=== PATIENT | female | born 1980 | race Caucasian/White ===

== ENCOUNTER 2017-05-02 11:04 | Observation (INO) | payer OTHER ==
[2017-05-02] MEDS ORDERED: SODIUM CHLORIDE 0.9% 1,000 ML IV STA (11:28)
[2017-05-02 12:02] LABS: Basophils # (A) 0.1 k/uL (0-0.2); Basophils % (A) 0 %; Eosinophils # (A) 0.1 k/uL (0-0.7); Eosinophils % (A) 1 %; HCT 38.4 % (34.0-46.0); HDW 2.39; HGB 13.2 gm/dL (11.4-16.0); Luc % (Auto) 1; Lymphocytes % (A) 15 %; MCH 34.5 pg (25.0-35.0); MCHC 34.4 g/dL (31.0-37.0); MCV 100.4 fL (80.0-100.0); Mean Platelet Volume 6.7; Monocytes # (A) 0.5 k/uL (0-1.0); Monocytes % (A) 3 %; Neutrophils # (A) 10.9 k/uL (1.3-7.7); Neutrophils % (A) 79 %; RBC 3.83 m/uL (3.80-5.40); WBC 13.7 k/uL (3.8-10.6); WBC (Perox) 13.84
[2017-05-02 12:14] LABS: Partial Thromboplastin Time 24.8 sec (22.0-30.0); Prothrombin Time 10.6 sec (9.0-12.0)
--- NOTE | 2017-05-02 12:15 | XR ---
EXAMINATION TYPE: XR chest 2V DATE OF EXAM: 05/02/2017 COMPARISON: NONE TECHNIQUE: PA and lateral views submitted. HISTORY: Chest pain FINDINGS: The lungs are clear and there is no pneumothorax, pleural effusion, or focal pneumonia. Biapical pl eural thickening with hyperinflation. Correlate for COPD. IMPRESSION: 1. No acute process. Mild hyperinflation lungs with biapical pleural thickening.
[2017-05-02] MEDS ORDERED: ACETAMINOPHEN TAB 500 MG TAB PO STA (12:16)
[2017-05-02 12:19] LABS: ALT 36 U/L (9-52); AST 22 U/L (14-36); Alkaline Phosphatase 68 U/L (38-126); Anion Gap 8 mmol/L; Blood Urea Nitrogen 7 mg/dL (7-17); Calcium 10.9 mg/dL (8.4-10.2); Carbon Dioxide 26 mmol/L (22-30); Chloride 106 mmol/L (98-107); Glucose 92 mg/dL (74-99); Magnesium 2.1 mg/dL (1.6-2.3); Non-African American GFR(MDRD) >60 (>60 ml/min/1.73 sqM); Potassium 4.4 mmol/L (3.5-5.1); Sodium 140 mmol/L (137-145); Total Bilirubin 0.3 mg/dL (0.2-1.3); Total Protein 7.3 g/dL (6.3-8.2)
[2017-05-02 12:22] LABS: Appearance,Urine Clear (Clear); Bilirubin,Urine Negative (Negative); Glucose,Urine (UA) Negative (Negative); Ketones,Urine Negative (Negative); Leukocyte Esterase,Urine Negative (Negative); Nitrite,Urine Negative (Negative); PH, Urine 7.5 (5.0-8.0); Protein,Urine Negative (Negative); Specific Gravity,Urine 1.006 (1.001-1.035); UA Billing (MACRO vs. MICRO) CHEM; Urobilinogen,Urine <2.0 mg/dL (<2.0)
[2017-05-02] MEDS ORDERED: NALOXONE 0.4 MG/ML 1 ML VIAL IV PRN (13:24)
--- NOTE | 2017-05-02 13:30 | ED ---
General Adult HPI - General Chief complaint: Chest Pain Stated complaint: chest pain, left arm and leg numbness Time Seen by Provider: 05/02/17 11:25 Source: patient Mode of arrival: wheelchair Limitations: no limitations - History of Present Illness Initial comments: Patient complains of bright red blood per rectum. She also complains of chest pain. Blood in her stool has been present for several days. She has had a lot of diarrhea as well. She is not having belly pain. She has no back pain. Patient is also having some lightheadedness and chest pain today. The symptoms are getting progressively worse. The pain is nonfocal and nonradiating throughout her chest. She denies any syncope. She has no neck pain or stiffness. She has no change in vision or hearing. She is tolerating oral intake. She was not doing anything when the symptoms began. She has taken no medication for any persistent symptoms. - Related Data Home Medications Medication Instructions Recorded Confirmed Atenolol [Tenormin] 50 mg PO DAILY 04/10/16 05/02/17 Ranitidine HCl [Zantac] 300 mg PO HS 04/10/16 05/02/17 cloNIDine HCL [Catapres] 0.2 mg PO TID 04/10/16 05/02/17 Calcium Carbonate/Vitamin D3 1 tab PO DAILY 05/02/17 05/02/17 [Calcium 600-Vit D3 400 Caplet] Cholecalciferol (Vitamin D3) 2,000 unit PO DAILY 05/02/17 05/02/17 [Vitamin D3] DULoxetine HCL [Cymbalta] 60 mg PO DAILY 05/02/17 05/02/17 NIFEdipine XL [Procardia Xl] 60 mg PO DAILY 05/02/17 05/02/17 traZODone HCL 100 mg PO HS 05/02/17 05/02/17 Allergies Allergy/AdvReac Type Severity Reaction Status Date / Time alendronate sodium Allergy Swelling Verified 05/02/17 11:40 [From Fosamax] codeine Allergy Unknown Verified 05/02/17 11:40 morphine Allergy Rash/Hives Verified 05/02/17 11:40 Review of Systems ROS Statement: Those systems with pertinent positive or pertinent negative responses have been documented in the HPI. ROS Other: All systems not noted in ROS Statement are negative. Past Medical History Past Medical History: Hypertension, Rheumatoid Arthritis (RA) Additional Past Medical History / Comment(s): ovarian/ cervical cancer gastric ulcers raynauds History of Any Multi-Drug Resistant Organisms: None Reported Past Surgical History: Bladder Surgery, Hysterectomy Additional Past Surgical History / Comment(s): ovarian/ cervical cancer removal Past Psychological History: Anxiety Smoking Status: Current every day smoker Past Alcohol Use History: None Reported Past Drug Use History: Marijuana General Exam Limitations: no limitations General appearance: alert, in no apparent distress Head exam: Present: atraumatic, normocephalic, normal inspection Eye exam: Present: normal appearance, PERRL, EOMI. Absent: scleral icterus, conjunctival injection, periorbital swelling ENT exam: Present: normal exam, mucous membranes moist Neck exam: Present: normal inspection. Absent: tenderness, meningismus, lymphadenopathy Respiratory exam: Present: normal lung sounds bilaterally. Absent: respiratory distress, wheezes, rales, rhonchi, stridor Cardiovascular Exam: Present: regular rate, normal rhythm, normal heart sounds. Absent: systolic murmur, diastolic murmur, rubs, gallop, clicks GI/Abdominal exam: Present: soft, normal bowel sounds. Absent: distended, tenderness, guarding, rebound, rigid Extremities exam: Present: normal inspection, full ROM, normal capillary refill. Absent: tenderness, pedal edema, joint swelling, calf tenderness Back exam: Present: normal inspection Neurological exam: Present: alert, oriented X3, CN II-XII intact Psychiatric exam: Present: normal affect, normal mood Skin exam: Present: warm, dry, intact, normal color. Absent: rash Course Vital Signs 05/02/17 11:16 Temperature 97.8 F Pulse Rate 87 Respiratory 18 Rate Blood Pressure 143/93 O2 Sat by Pulse 99 Oximetry EKG Findings - EKG Comments: EKG Findings:: Twelve-lead EKG is obtained, interpreted by me as showing ventricular rate 82 bpm, normal MO interval and QRS complex is, no ST elevation or depression, interpreted by me as normal sinus rhythm. Medical Decision Making - Medical Decision Making Patient complains of chest pain, lightheadedness, with evidence of lower GI bleed. I have placed a consultation to GI. Given that she has active sarita blood per rectum, she will require admission to the hospital. - Lab Data Result diagrams: 05/02/17 11:45 05/02/17 11:45 Lab Results 05/02/17 05/02/17 05/02/17 Range/Units 11:45 11:45 11:45 WBC 13.7 H (3.8-10.6) k/uL RBC 3.83 (3.80-5.40) m/uL Hgb 13.2 (11.4-16.0) gm/dL Hct 38.4 (34.0-46.0) % MCV 100.4 H (80.0-100.0) fL MCH 34.5 (25.0-35.0) pg MCHC 34.4 (31.0-37.0) g/dL RDW 13.0 (11.5-15.5) % Plt Count 408 (150-450) k/uL Neutrophils % 79 % Lymphocytes % 15 % Monocytes % 3 % Eosinophils % 1 % Basophils % 0 % Neutrophils # 10.9 H (1.3-7.7) k/uL Lymphocytes # 2.0 (1.0-4.8) k/uL Monocytes # 0.5 (0-1.0) k/uL Eosinophils # 0.1 (0-0.7) k/uL Basophils # 0.1 (0-0.2) k/uL PT 10.6 (9.0-12.0) sec INR 1.0 (<1.2) APTT 24.8 (22.0-30.0) sec Sodium 140 (137-145) mmol/L Potassium 4.4 (3.5-5.1) mmol/L Chloride 106 (98-107) mmol/L Carbon Dioxide 26 (22-30) mmol/L Anion Gap 8 mmol/L BUN 7 (7-17) mg/dL Creatinine 0.62 (0.52-1.04) mg/dL Est GFR (MDRD) Af Amer >60 (>60 ml/min/1.73 sqM) Est GFR (MDRD) Non-Af >60 (>60 ml/min/1.73 sqM) Glucose 92 (74-99) mg/dL Calcium 10.9 H (8.4-10.2) mg/dL Magnesium 2.1 (1.6-2.3) mg/dL Total Bilirubin 0.3 (0.2-1.3) mg/dL AST 22 (14-36) U/L ALT 36 (9-52) U/L Alkaline Phosphatase 68 (38-126) U/L Troponin I (0.000-0.034) ng/mL Total Protein 7.3 (6.3-8.2) g/dL Albumin 4.6 (3.5-5.0) g/dL Lipase 210 (23-300) U/L Urine Color Urine Appearance (Clear) Urine pH (5.0-8.0) Ur Specific [place] (1.001-1.035) Urine Protein (Negative) Urine Glucose (UA) (Negative) Urine Ketones (Negative) Urine Blood (Negative) Urine Nitrite (Negative) Urine Bilirubin (Negative) Urine Urobilinogen (<2.0) mg/dL Ur Leukocyte Esterase (Negative) Urine HCG, Qual (Not Detectd) 05/02/17 05/02/17 05/02/17 Range/Units 11:45 11:50 11:50 WBC (3.8-10.6) k/uL RBC (3.80-5.40) m/uL Hgb (11.4-16.0) gm/dL Hct (34.0-46.0) % MCV (80.0-100.0) fL MCH (25.0-35.0) pg MCHC (31.0-37.0) g/dL RDW (11.5-15.5) % Plt Count (150-450) k/uL Neutrophils % % Lymphocytes % % Monocytes % % Eosinophils % % Basophils % % Neutrophils # (1.3-7.7) k/uL Lymphocytes # (1.0-4.8) k/uL Monocytes # (0-1.0) k/uL Eosinophils # (0-0.7) k/uL Basophils # (0-0.2) k/uL PT (9.0-12.0) sec INR (<1.2) APTT (22.0-30.0) sec Sodium (137-145) mmol/L Potassium (3.5-5.1) mmol/L Chloride (98-107) mmol/L Carbon Dioxide (22-30) mmol/L Anion Gap mmol/L BUN (7-17) mg/dL Creatinine (0.52-1.04) mg/dL Est GFR (MDRD) Af Amer (>60 ml/min/1.73 sqM) Est GFR (MDRD) Non-Af (>60 ml/min/1.73 sqM) Glucose (74-99) mg/dL Calcium (8.4-10.2) mg/dL Magnesium (1.6-2.3) mg/dL Total Bilirubin (0.2-1.3) mg/dL AST (14-36) U/L ALT (9-52) U/L Alkaline Phosphatase (38-126) U/L Troponin I <0.012 (0.000-0.034) ng/mL Total Protein (6.3-8.2) g/dL Albumin (3.5-5.0) g/dL Lipase (23-300) U/L Urine Color Light Yellow Urine Appearance Clear (Clear) Urine pH 7.5 (5.0-8.0) Ur Specific [place] 1.006 (1.001-1.035) Urine Protein Negative (Negative) Urine Glucose (UA) Negative (Negative) Urine Ketones Negative (Negative) Urine Blood Negative (Negative) Urine Nitrite Negative (Negative) Urine Bilirubin Negative (Negative) Urine Urobilinogen <2.0 (<2.0) mg/dL Ur Leukocyte Esterase Negative (Negative) Urine HCG, Qual Not Detected (Not Detectd) Disposition Clinical Impression: GI bleed Disposition: ADMITTED IP TO THIS [facility] Referrals: Antonia Goodrich DO [Primary Care Provider] - 1-2 days Time of Disposition: 13:30
[2017-05-02] MEDS: SODIUM CHLORIDE 0.9% 1,000 ML IV SCH (13:58)
[2017-05-02] MEDS: cloNIDine HCL 0.2 MG TAB PO SCH ×2 (16:54→21:12)
[2017-05-02] MEDS: ACETAMINOPHEN TAB 500 MG TAB PO PRN (19:03)
[2017-05-02] MEDS ORDERED: FAMOTIDINE 20 MG TAB PO SCH (21:00)
[2017-05-02] MEDS: traZODone HCL 100 MG TAB PO SCH (21:12)
[2017-05-03] MEDS: ACETAMINOPHEN TAB 500 MG TAB PO PRN ×3 (06:17→20:57)
[2017-05-03 07:35] LABS: Basophils % (A) 1 %; CHCM 34.3; Eosinophils # (A) 0.2 k/uL (0-0.7); Eosinophils % (A) 2 %; HCT 38.3 % (34.0-46.0); HDW 2.37; HGB 12.5 gm/dL (11.4-16.0); Luc # (Auto) 0.12; Luc % (Auto) 1; Lymphocytes # (A) 1.9 k/uL (1.0-4.8); Lymphocytes % (A) 19 %; MCH 33.3 pg (25.0-35.0); MCHC 32.5 g/dL (31.0-37.0); MCV 102.5 fL (80.0-100.0); Macrocytosis Slight; Mean Platelet Volume 7.3; Monocytes # (A) 0.4 k/uL (0-1.0); Monocytes % (A) 4 %; Neutrophils # (A) 7.1 k/uL (1.3-7.7); Neutrophils % (A) 73 %; RBC 3.74 m/uL (3.80-5.40); RDW 13.8 % (11.5-15.5); WBC 9.6 k/uL (3.8-10.6); WBC (Perox) 9.74
[2017-05-03] MEDS: cloNIDine HCL 0.2 MG TAB PO SCH ×3 (08:27→20:57)
[2017-05-03] MEDS: DULoxetine HCL 60 MG CAPSULE.DR PO SCH (08:27)
[2017-05-03] MEDS: ATENOLOL 50 MG TAB PO SCH (08:27)
--- NOTE | 2017-05-03 09:30 | P.CONS ---
History of Present Illness - Reason for Consult Consult date: 05/03/17 rectal bleeding Requesting physician: Jovanna Ludwig - History of Present Illness 36-year-old female with a history of peptic ulcer disease GERD, anxiety, nicotine cigarette dependency marijuana and opioid drug abuse admitted with reports of chest/abdominal pain and intermittent bloody diarrhea for 3 months. Patient states she try to wean herself off of opioid/[place] 3 months ago. Since then she has sought treatment at a rehabilitation center about 6 weeks ago in [facility] but is experiencing lower abdominal discomfort with intermittent bloody diarrhea 2-3 times a day for the last 3 months. Rehabilitation Center discharged until rectal bleeding can be evaluated. No recent antibiotics. No history of colitis IBS or GI bleeding. Last colonoscopy to her memory was 5 years ago with a polyp removed. EGD more than 3 years ago. Mother has a history of Crohn's disease. Denies fever or chills or weight loss. Intermittent emesis sometimes peaked tinge sometimes bilious. Upon evaluation in the ER rectal exam revealed sarita red blood. Nursing reports no episodes of hematochezia melena since admission. No aspirin or NSAIDs antiplatelet medications. Admission hemoglobin 13.2 presently 12.5. MCV 100-102. Platelet 408. INR 1.0. BUN 7. Creatinine 0.6. White count 13.7 presently 9.6. HCG not detected. Lipase 210. LFTs within normal limits. Review of Systems Constitutional: Denies fever, chills, sweats, weight gain, or loss. HEENT: Negative for migraines, blurred vision or loss, chronic hearing loss as a child, earaches, drainage, tinnitus, oral mucosal lesions, dysphagia, or odynophagia. CARDIAC: Hypertension. Negative for chest pain, arrhythmias, or palpitation. RESPIRATORY: Cigarette nicotine dependency. Marijuana. Negative for shortness of breath, hemoptysis, cough, or sputum production. GI: See HPI for pertinent findings. : Negative for hematuria, urgency, frequency, polyuria, or dysuria. GYNc: Cervical cancer. Denies possibility of . Negative vaginal discharge. MUSCULOSKELETAL: Negative for muscle aches, swelling, arthritis, and arthralgias. NEUROLOGIC: Negative for stroke or TIA. ENDOCRINE: Negative for thyroid problems. SKIN: Negative for rash or itching. PSYCHIATRIC: Anxiety. All systems: negative (See HPI) Past Medical History Past Medical History: GERD/Reflux, Hypertension, Rheumatoid Arthritis (RA) Additional Past Medical History / Comment(s): cervical cancer. gastric ulcers, raynauds,ruptured ear drum (lt) as child has some hearing loss. History of Any Multi-Drug Resistant Organisms: None Reported Past Surgical History: Bladder Surgery, Hysterectomy Additional Past Surgical History / Comment(s): ovarian/ cervical cancer removal , egd, colonoscopy Past Anesthesia/Blood Transfusion Reactions: No Reported Reaction Additional Past Anesthesia/Blood Transfusion Reaction / Comm: clausterphobic Smoking Status: Current every day smoker - Past Family History Father Additional Family Medical History / Comment(s): ulcers Mother Additional Family Medical History / Comment(s): ibs Medications and Allergies Home Medications Medication Instructions Recorded Confirmed Type Atenolol [Tenormin] 50 mg PO DAILY 04/10/16 05/02/17 History Ranitidine HCl [Zantac] 300 mg PO HS 04/10/16 05/02/17 History cloNIDine HCL [Catapres] 0.2 mg PO TID 04/10/16 05/02/17 History Calcium Carbonate/Vitamin D3 1 tab PO DAILY 05/02/17 05/02/17 History [Calcium 600-Vit D3 400 Caplet] Cholecalciferol (Vitamin D3) 2,000 unit PO DAILY 05/02/17 05/02/17 History [Vitamin D3] DULoxetine HCL [Cymbalta] 60 mg PO DAILY 05/02/17 05/02/17 History Gabapentin [Neurontin] 200 mg PO TID 05/02/17 05/02/17 History NIFEdipine XL [Procardia Xl] 60 mg PO DAILY 05/02/17 05/02/17 History traZODone HCL 100 mg PO HS 05/02/17 05/02/17 History Allergies Allergy/AdvReac Type Severity Reaction Status Date / Time alendronate sodium Allergy Swelling Verified 05/02/17 11:40 [From Fosamax] codeine Allergy Unknown Verified 05/02/17 11:40 morphine Allergy Rash/Hives Verified 05/02/17 11:40 Physical Exam Vitals: Vital Signs Temp Pulse Pulse Resp BP BP Pulse Ox 05/03/17 08:00 97.9 F 76 16 115/69 98 05/03/17 04:00 16 05/03/17 00:00 16 05/02/17 23:55 98.0 F 78 16 99/61 99 05/02/17 20:00 16 05/02/17 15:51 98.3 F 70 18 112/65 98 05/02/17 14:18 98.7 F 74 18 123/70 100 05/02/17 14:03 98.6 F 79 16 120/77 05/02/17 11:16 97.8 F 87 18 143/93 99 Intake and Output 05/02/17 05/03/17 05/03/17 22:59 06:59 14:59 Intake Total 360 Balance 360 Intake: Oral 360 Other: Voiding Method Toilet # Voids 1 1 Weight 54.3 kg 54.3 kg Patient Weight 05/04/17 06:59 Weight 54.3 kg General appearance: The patient is alert, oriented, in no acute distress. HET: Head is normocephalic and atraumatic. Pupils are equal and reactive. Oropharynx is clear without lesions. Neck: Supple without lymphadenopathy. Trachea midline. Heart: S1 S2. Regular rate and rhythm. Lungs: No crackles or wheezes are heard. Abdomen: Soft, nontender, nondistended with bowel sounds. No peritoneal signs. No palpable organomegaly or masses. Extremities: Normal skin color and turgor. No cyanosis, rash, ulceration, clubbing, or edema. Radial and pedal pulses are 2/4 bilaterally. Neurological: No focal deficits. Strength and sensation are grossly intact. Rectal: Brown stool and finger. No possible masses. No blood. No fissures. Results CBC & Chem 7: 05/03/17 07:06 05/02/17 11:45 Labs: Abnormal Lab Results - Last 24 Hours (Table) 05/02/17 05/02/17 05/03/17 Range/Units 11:45 11:45 07:06 WBC 13.7 H (3.8-10.6) k/uL RBC 3.74 L (3.80-5.40) m/uL MCV 100.4 H 102.5 H (80.0-100.0) fL Neutrophils # 10.9 H (1.3-7.7) k/uL Calcium 10.9 H (8.4-10.2) mg/dL Assessment and Plan (1) Rectal bleeding Narrative/Plan: Intermittent bilious pink tinged emesis, history of gastric ulcers, with rectal bleeding 2-3 times daily for the last 3 months possible colitis possible perianal pathology. History of familial inflammatory bowel disease. Status: Acute (2) History of gastroesophageal reflux (GERD) Status: Acute Plan: 1. Stool studies. Sed rate/CRP. 2. We'll proceed with EGD colonoscopy tomorrow for evaluation of pink tinged emesis and rectal bleeding. Supportive measures. Liquid diet. The stem dryer maintainer has discussed the risks, benefits and alternative therapies for the above-mentioned procedure and for both sedation/analgesia as well as necessary blood product administration, if indicated, as they pertain to this patient. The patient has indicated understanding and acceptance of the risks and procedures discussed. Thank you for this kind referral and the opportunity to participate in the care of your patient. This consultation was discussed with Dr. Vaca. The impression and plan of care have been directed as dictated.
[2017-05-03] MEDS: PANTOPRAZOLE 40 MG/10 ML VIAL IVP SCH ×2 (13:03→21:02)
[2017-05-03 13:37] VITALS: BMI 21.2
--- NOTE | 2017-05-03 13:57 | P.HPIM ---
History of Present Illness H&P Date: 05/03/17 Chief Complaint: Diarrhea with rectal bleeding This is a 36-year-old female with a known past medical history of peptic ulcer disease, hypertension, rheumatoid arthritis, Raynaud syndrome and nicotine dependence. Patient also has a known history of opioid drug abuse and had recently been at a rehabilitation center in [facility]. Patient reports that she has been having diarrhea about 2-3 times a day for the last 3 months. She is also had some vomiting. She is noted to have blood in her stools as well as intermittent episodes of emesis that is pink tinged. Patient reports therefore the rehabilitation center told her she needed to come to the hospital for evaluation before she could return to the rehabilitation center. Patient's last EGD and colonoscopy were about 5 years ago. At that time she was diagnosed with peptic ulcer disease as well as had polyps removed. Does have a mother with a history of Crohn's disease. Patient does report a burning sensation in her stomach especially in the lower stomach. Patient denies any fevers chills or sweats. Denies any burning with urination. GI service has been consulted. And they're planning to proceed with EGD and colonoscopy tomorrow. White count on admission was 13.7 down to 9.6 and hemoglobin 13.2 did down to 12.5. C. diff is negative. LFTs are normal. lipase normal. GI service did order further stool studies. Chest x-ray shows no acute changes. EKG normal sinus rhythm Review of Systems Please refer to HPI otherwise unremarkable Past Medical History Past Medical History: GERD/Reflux, Hypertension, Rheumatoid Arthritis (RA) Additional Past Medical History / Comment(s): cervical cancer. gastric ulcers, raynauds,ruptured ear drum (lt) as child has some hearing loss. History of Any Multi-Drug Resistant Organisms: None Reported Past Surgical History: Bladder Surgery, Hysterectomy Additional Past Surgical History / Comment(s): ovarian/ cervical cancer removal , egd, colonoscopy Past Anesthesia/Blood Transfusion Reactions: No Reported Reaction Additional Past Anesthesia/Blood Transfusion Reaction / Comment(s): clausterphobic Smoking Status: Current every day smoker - Past Family History Father Additional Family Medical History / Comment(s): ulcers Mother Additional Family Medical History / Comment(s): ibs Medications and Allergies Home Medications Medication Instructions Recorded Confirmed Type Atenolol [Tenormin] 50 mg PO DAILY 08/16/16 09/07/17 History Ranitidine HCl [Zantac] 300 mg PO HS 04/10/16 05/02/17 History cloNIDine HCL [Catapres] 0.2 mg PO TID 04/10/16 05/02/17 History Calcium Carbonate/Vitamin D3 1 tab PO DAILY 05/02/17 05/02/17 History [Calcium 600-Vit D3 400 Caplet] Cholecalciferol (Vitamin D3) 2,000 unit PO DAILY 05/02/17 05/02/17 History [Vitamin D3] DULoxetine HCL [Cymbalta] 60 mg PO DAILY 05/02/17 05/02/17 History Gabapentin [Neurontin] 200 mg PO TID 05/02/17 05/02/17 History NIFEdipine XL [Procardia Xl] 60 mg PO DAILY 05/02/17 05/02/17 History traZODone HCL 100 mg PO HS 05/02/17 05/02/17 History Allergies Allergy/AdvReac Type Severity Reaction Status Date / Time alendronate sodium Allergy Swelling Verified 05/02/17 11:40 [From Fosamax] codeine Allergy Unknown Verified 05/02/17 11:40 morphine Allergy Rash/Hives Verified 05/02/17 11:40 Physical Exam Vitals: Vital Signs Temp Pulse Pulse Resp BP BP Pulse Ox 05/03/17 08:00 97.9 F 76 16 115/69 98 05/03/17 04:00 16 05/03/17 00:00 16 05/02/17 23:55 98.0 F 78 16 99/61 99 05/02/17 20:00 16 05/02/17 15:51 98.3 F 70 18 112/65 98 05/02/17 14:18 98.7 F 74 18 123/70 100 05/02/17 14:03 98.6 F 79 16 120/77 Intake and Output 05/02/17 05/03/17 05/03/17 22:59 06:59 14:59 Intake Total 360 Balance 360 Intake: Oral 360 Other: Voiding Method Toilet # Voids 1 1 Weight 54.3 kg 54.3 kg Patient Weight 05/04/17 06:59 Weight 54.3 kg Head normocephalic Neck supple Lungs clear to auscultation bilaterally no wheezing or crackles Heart regular rate and rhythm S1-S2, no rub or gallop Abdomen is soft lower abdominal tenderness with palpation nondistended positive bowel sounds no hepatosplenomegaly Extremities no edema Neuro alert and orientated to 3 Results CBC & Chem 7: 05/03/17 07:06 05/02/17 11:45 Labs: Abnormal Lab Results - Last 24 Hours (Table) 05/03/17 Range/Units 07:06 RBC 3.74 L (3.80-5.40) m/uL MCV 102.5 H (80.0-100.0) fL Assessment and Plan Plan: 1. Rectal bleeding with diarrhea and pink tinged emesis. Patient has history of peptic ulcer disease. GI service consult appreciated. They're planning to proceed with EGD and colonoscopy tomorrow. Stool studies have been ordered per GI service. Stool for C. diff is negative. Continue with IV Protonix 2. Essential hypertension: Blood pressure medications have been resumed 3. Nicotine dependence: Add nicotine patch. Discussed smoking cessation. 4. History of Raynaud's syndrome 5. History of peptic ulcer disease 6. Opiate abuse had recently been at rehabilitation Center GI prophylaxis Protonix and DVT prophylaxis SCDs Time with Patient: Greater than 30 (Greater than 50% of the total time spent in counseling and coordination of care.I performed an examination of the patient and discussed their management with the physician Radiotelegraph Operator Servicer. I have reviewed the Physician Radiotelegraph Operator Servicer's notes and agree with the documented findings and plan of care)
[2017-05-03] MEDS ORDERED: PEG 3350-NA SULF,BICARB,CL/KCL 4,000 ML BOTTLE PO ONE (15:00)
[2017-05-03] MEDS: GABAPENTIN 100 MG CAP PO SCH ×2 (15:17→20:57)
[2017-05-03] MEDS: NICOTINE 14MG/24HR PATCH TRANSDERM SCH (15:17)
[2017-05-03 19:18] VITALS: RESP 18
[2017-05-03] MEDS: SODIUM CHLORIDE 0.9% 1,000 ML IV SCH (20:38)
[2017-05-03] MEDS: ONDANSETRON 4 MG/2 ML VIAL IVP PRN (20:55)
[2017-05-03] MEDS: traZODone HCL 100 MG TAB PO SCH (20:57)
[2017-05-04] MEDS: ONDANSETRON 4 MG/2 ML VIAL IVP PRN (04:50)
[2017-05-04 06:51] LABS: Basophils # (A) 0.1 k/uL (0-0.2); Basophils % (A) 1 %; CHCM 34.3; Eosinophils # (A) 0.3 k/uL (0-0.7); Eosinophils % (A) 3 %; HCT 37.2 % (34.0-46.0); HDW 2.36; HGB 12.2 gm/dL (11.4-16.0); Luc # (Auto) 0.14; Luc % (Auto) 1; Lymphocytes # (A) 2.1 k/uL (1.0-4.8); Lymphocytes % (A) 21 %; MCH 33.8 pg (25.0-35.0); MCHC 32.9 g/dL (31.0-37.0); MCV 102.7 fL (80.0-100.0); Macrocytosis Slight; Mean Platelet Volume 7.4; Monocytes # (A) 0.3 k/uL (0-1.0); Monocytes % (A) 3 %; Neutrophils % (A) 71 %; RBC 3.62 m/uL (3.80-5.40); RDW 13.8 % (11.5-15.5); WBC 9.8 k/uL (3.8-10.6); WBC (Perox) 10.34
[2017-05-04 07:33] LABS: ALT 24 U/L (9-52); AST 16 U/L (14-36); Alkaline Phosphatase 51 U/L (38-126); Anion Gap 7 mmol/L; Blood Urea Nitrogen 7 mg/dL (7-17); Calcium 9.8 mg/dL (8.4-10.2); Carbon Dioxide 27 mmol/L (22-30); Chloride 108 mmol/L (98-107); Glucose 83 mg/dL (74-99); Magnesium 1.8 mg/dL (1.6-2.3); Non-African American GFR(MDRD) >60 (>60 ml/min/1.73 sqM); Potassium 4.3 mmol/L (3.5-5.1); Sodium 142 mmol/L (137-145); Total Bilirubin 0.3 mg/dL (0.2-1.3); Total Protein 6.2 g/dL (6.3-8.2)
[2017-05-04] MEDS ORDERED: IV FLUID CONTINUATION 150 ML IV ONE (07:59)
[2017-05-04 08:07] VITALS: TEMP 98.3
[2017-05-04] MEDS ORDERED: IV FLUID CONTINUATION 1,000 ML IV ONE (08:14)
[2017-05-04] MEDS ORDERED: PROPOFOL 10 MG/ML 20 ML VIAL IV ONE (08:17)
[2017-05-04] MEDS ORDERED: ONDANSETRON 4 MG/2 ML VIAL ONE (08:17)
--- NOTE | 2017-05-04 09:13 | P.PCN ---
Date of Procedure: 05/04/17 Preoperative Diagnosis: Postoperative Diagnosis: Procedure(s) Performed: Procedures: 1. Esophagogastroduodenoscopy and biopsy. 2. Colonoscopy and biopsy. Preoperative diagnosis: Diarrhea and bleeding and history of ulcers and polyps. Postoperative diagnosis: 1. Small sliding hiatal hernia with no obvious esophagitis or complicated reflux disease. 2. Mild antral gastritis. 3. Exam of the colon essentially within normal limits with the only finding of low- grade internal hemorrhoids without bleeding at the time of this exam. 4. Biopsies obtained from the duodenum, antrum, esophagus and right colon. Preparation: GoLYTELY prep. Sedation: Was provided by anesthesia. Brief clinical history: The patient is a 36-year-old female with a history of peptic ulcer disease, GERD, anxiety, nicotine cigarette dependency marijuana and opioid drug abuse admitted with reports of chest/abdominal pain and intermittent bloody diarrhea for 3 months. Patient apparently was trying to wean herself off opioid/[place] 3 months ago. Since then she has sought treatment at a rehabilitation center about 6 weeks ago in [place], [place] but has been experiencing lower abdominal discomfort with intermittent bloody diarrhea 2-3 times a day for the last 3 months. Rehabilitation Center discharged until rectal bleeding can be evaluated. No recent antibiotics. No aspirin or NSAIDs antiplatelet medications. No history of colitis IBS or GI bleeding. Last colonoscopy to her memory was 5 years ago with a polyp removed. EGD more than 3 years ago. Mother has a history of Crohn's disease. Denies fever or chills or weight loss. Intermittent emesis sometimes pink tinge sometimes bilious. Admission hemoglobin 13.2 dropped to 12.5. MCV 100-102. Platelet 408. INR 1.0. BUN 7. Creatinine 0.6. White count 13.7 presently 9.6. HCG not detected. Lipase 210. LFTs within normal limits. Nursing reported no episodes of hematochezia or melena since admission. The details are summarized in the history and physical and dictated consultation. This evaluation is to assess for a cause of diarrhea and the other symptoms including the bleeding. Procedure: With the patient on her left lateral decubitus position and after informed consent and adequate sedation, I passed the Olympus-GIF 160 video upper endoscope through the cricopharyngeus down the esophagus. The esophagus appeared healthy. GE junction was around 39 cm from the incisors and there was a small 1 cm sliding hiatal hernia. The endoscope was then passed into the stomach which was insufflated with air and inspected in detail including the retroflex view in the cardia. There was some mottling and erythema in the antrum but no ulcers or erosions. Pyloric channel, duodenal bulb, post bulbar area and descending duodenum appeared within normal limits. I obtained multiple biopsies from the duodenum, antrum and esophagus then the endoscope was withdrawn and I then proceeded to do colonoscopy. Perianal area did not show any fissures or fistulas. There were no masses felt on digital rectal examination. The Olympus CFQ 160L video colonoscope was then inserted in the rectum and the usual fashion and advanced to the cecum. I was not able to intubate the ileocecal valve to examine the terminal ileum. The colon appeared healthy with no edema, erythema, friability, ulceration, exudation or spontaneous bleeding. No polyps or tumors were seen or any obvious diverticular disease. I obtained biopsies from the right colon to assess for possible microscopic colitis. I then retroflexed the endoscope in the rectum before the endoscope was withdrawn. The patient tolerated the procedure well. Plan: The patient was reassured and I discussed with her family. Will await pathology results and further plans can be made based on her course and biopsy results. In the meantime, she can continue dietary measures and local care for hemorrhoids and symptomatic treatment for diarrhea. Implants: Indications for Procedure: Operative Findings: Description of Procedure:
[2017-05-04 09:20] LABS: Glucose,Whole Blood 93 mg/dL (75-99)
[2017-05-04] MEDS: cloNIDine HCL 0.2 MG TAB PO SCH ×2 (10:26→16:36)
[2017-05-04] MEDS: ATENOLOL 50 MG TAB PO SCH (10:26)
[2017-05-04] MEDS: NICOTINE 14MG/24HR PATCH TRANSDERM SCH (10:26)
[2017-05-04] MEDS: PANTOPRAZOLE 40 MG/10 ML VIAL IVP SCH (10:26)
[2017-05-04] MEDS: DULoxetine HCL 60 MG CAPSULE.DR PO SCH (10:26)
[2017-05-04] MEDS: GABAPENTIN 100 MG CAP PO SCH ×2 (10:26→16:36)
[2017-05-04 10:46] VITALS: BP 117/74; PULSE 74
[2017-05-04] MEDS: ACETAMINOPHEN TAB 500 MG TAB PO PRN (10:56)
--- NOTE | 2017-05-04 14:16 | P.DS ---
Providers Date of admission: 05/02/17 13:24 Expected date of discharge: 05/04/17 Attending physician: Jovanna Ludwig Consults: 05/02/17 13:24 Consult Physician Routine Consulting Provider: Alicia Slade Consult Reason/Comments: gi bleed Do you want consulting provider notified?: Yes Primary care physician: Antonia Goodrich [facility] Course: Diagnoses on discharge: 1. Rectal bleeding with diarrhea and pink tinged emesis. Patient has history of peptic ulcer disease. GI service consult appreciated. Patient underwent EGD and colonoscopy . Has evidence of gastritis otherwise no abnormalities. Stool for C. diff is negative. 2. Essential hypertension: Blood pressure medications have been resumed 3. Nicotine dependence: Add nicotine patch. Discussed smoking cessation. 4. History of Raynaud's syndrome 5. History of peptic ulcer disease 6. Opiate abuse had recently been at rehabilitation [facility] course: This is a 36-year-old female with a known past medical history of peptic ulcer disease, hypertension, rheumatoid arthritis, Raynaud syndrome and nicotine dependence. Patient also has a known history of opioid drug abuse and had recently been at a rehabilitation center in [facility]. Patient reports that she has been having diarrhea about 2-3 times a day for the last 3 months. She is also had some vomiting. She is noted to have blood in her stools as well as intermittent episodes of emesis that is pink tinged. Patient reports therefore the rehabilitation center told her she needed to come to the hospital for evaluation before she could return to the rehabilitation center. Patient's last EGD and colonoscopy were about 5 years ago. At that time she was diagnosed with peptic ulcer disease as well as had polyps removed. Does have a mother with a history of Crohn's disease. Patient does report a burning sensation in her stomach especially in the lower stomach. Patient denies any fevers chills or sweats. Denies any burning with urination. During this admission bleeding resolved spontaneously. Hemoglobin was stable without any significant major bleeding. During this admission patient had EGD and colonoscopy was Dr. Ramires patient had evidence of mild gastritis otherwise no abnormality oral protonic 40 mg by mouth daily was added to her regimen and she was discharged home on 05/04/2017. Patient is medically cleared to return to rehab at [facility]. Plan - Discharge Summary New Discharge Prescriptions: New Nicotine 14Mg/24Hr Patch [Habitrol] 1 patch TRANSDERM DAILY patch Pantoprazole Sodium [Protonix] 40 mg PO AC-BRKFST #30 tablet.dr Continue cloNIDine HCL [Catapres] 0.2 mg PO TID Ranitidine HCl [Zantac] 300 mg PO HS Atenolol [Tenormin] 50 mg PO DAILY traZODone HCL 100 mg PO HS DULoxetine HCL [Cymbalta] 60 mg PO DAILY Cholecalciferol (Vitamin D3) [Vitamin D3] 2,000 unit PO DAILY Calcium Carbonate/Vitamin D3 [Calcium 600-Vit D3 400 Caplet] 1 tab PO DAILY NIFEdipine XL [Procardia XL] 60 mg PO DAILY Gabapentin [Neurontin] 200 mg PO TID Discharge Medication List Atenolol [Tenormin] 50 mg PO DAILY 04/10/16 [History] Ranitidine HCl [Zantac] 300 mg PO HS 04/10/16 [History] cloNIDine HCL [Catapres] 0.2 mg PO TID 04/10/16 [History] Calcium Carbonate/Vitamin D3 [Calcium 600-Vit D3 400 Caplet] 1 tab PO DAILY 03/11 [History] Cholecalciferol (Vitamin D3) [Vitamin D3] 2,000 unit PO DAILY 05/02/17 [History] DULoxetine HCL [Cymbalta] 60 mg PO DAILY 05/02/17 [History] Gabapentin [Neurontin] 200 mg PO TID 05/02/17 [History] NIFEdipine XL [Procardia XL] 60 mg PO DAILY 05/02/17 [History] traZODone HCL 100 mg PO HS 05/02/17 [History] Nicotine 14Mg/24Hr Patch [Habitrol] 1 patch TRANSDERM DAILY patch 05/04/17 [Rx] Pantoprazole Sodium [Protonix] 40 mg PO AC-BRKFST #30 tablet. 05/04/17 [Rx] Follow up Appointment(s)/Referral(s): Antonia Goodrich DO [Primary Care Provider] - 1-2 days
== END 2017-05-04 16:50 | disposition home or self-care (01) ==
LOC: EC 11:04 → 3OBS 13:24
PROVIDERS: ADMIT Internal Medicine; ATTEND Internal Medicine
DX: K62.5 Hemorrhage of anus and rectum (principal); R19.7 Diarrhea, unspecified; R11.10 Vomiting, unspecified; K29.50 Unspecified chronic gastritis without bleeding; R07.89 Other chest pain; R20.0 Anesthesia of skin; I10 Essential (primary) hypertension; F17.210 Nicotine dependence, cigarettes, uncomplicated; I73.00 Raynaud's syndrome without gangrene; Z87.11 Personal history of peptic ulcer disease; K21.9 Gastro-esophageal reflux disease without esophagitis; Z79.899 Other long term (current) drug therapy; F11.10 Opioid abuse, uncomplicated; K64.8 Other hemorrhoids; K44.9 Diaphragmatic hernia without obstruction or gangrene; F41.9 Anxiety disorder, unspecified; Z88.8 Allergy status to other drugs, medicaments and biological substances; Z88.5 Allergy status to narcotic agent; M06.9 Rheumatoid arthritis, unspecified; Z85.41 Personal history of malignant neoplasm of cervix uteri; Z83.79 Family history of other diseases of the digestive system
CPT/HCPCS: 99285; 96361 ×3; 96374; 96375; 96376; 36415; 93005; 88305; 80053 ×2; 85652; 83690; 83735 ×2; 84484; 85025 ×3; 85610; 85730; 86140; 81003; 88342; 81025; 87324; 71020; 45380; 43239; G0378 ×3; S4990 ×2; J2405 ×2; J2704; C9113 ×2

== ENCOUNTER 2019-01-08 12:57 | Emergency (ER) | payer OTHER ==
[2019-01-08 13:00] VITALS: TEMP 98.4
[2019-01-08] MEDS ORDERED: SODIUM CHLORIDE 0.9% 500 ML 500 ML IV STA (13:11)
[2019-01-08 13:32] LABS: ALT 14 U/L (9-52); AST 22 U/L (14-36); Albumin 4.5 g/dL (3.5-5.0); Alkaline Phosphatase 54 U/L (38-126); Amylase 71 U/L (30-110); Anion Gap 7 mmol/L; Blood Urea Nitrogen 11 mg/dL (7-17); Calcium 10.7 mg/dL (8.4-10.2); Carbon Dioxide 26 mmol/L (22-30); Chloride 106 mmol/L (98-107); Glucose 124 mg/dL (74-99); Lipase 96 U/L (23-300); Potassium 4.4 mmol/L (3.5-5.1); Sodium 139 mmol/L (137-145); Total Bilirubin 0.5 mg/dL (0.2-1.3); Total Protein 7.1 g/dL (6.3-8.2)
[2019-01-08 13:33] LABS: Basophils % (A) 0 %; Eosinophils # (A) 0.3 k/uL (0-0.7); Eosinophils % (A) 3 %; HCT 41.9 % (34.0-46.0); HGB 13.7 gm/dL (11.4-16.0); Lymphocytes % (A) 20 %; MCH 32.2 pg (25.0-35.0); MCHC 32.8 g/dL (31.0-37.0); MCV 98.2 fL (80.0-100.0); Mean Platelet Volume 7.2; Monocytes # (A) 0.5 k/uL (0-1.0); Monocytes % (A) 5 %; Neutrophils # (A) 6.9 k/uL (1.3-7.7); Neutrophils % (A) 69 %; Platelet Count 278 k/uL (150-450); RBC 4.27 m/uL (3.80-5.40); RDW 12.9 % (11.5-15.5)
[2019-01-08] MEDS ORDERED: ACETAMINOPHEN TAB 325 MG TAB PO STA (13:54)
--- NOTE | 2019-01-08 13:56 | CT ---
EXAMINATION TYPE: CT abdomen pelvis w con DATE OF EXAM: 01/08/2019 COMPARISON: NONE HISTORY: 38-year-old female abdominal pain, Right lower quadrant pain TECHNIQUE: Contiguous axial scanning of the abdomen and pelvis following administration of 100 ml Iso rajesh 300 IV contrast. Delayed images through the kidneys and coronal/sagittal reconstructions perform ed. CT DLP: 560.7 mGycm Automated exposure control for dose reduction was used. FINDINGS: Heart normal size without pericardial effusion. Lung bases clear without pleural effusion. Breathing motion artifacts throughout the abdomen Limited assessment. Small amount of focal fat along the anterior falciform ligament. Gallbladder appears collapsed. Bile duct at 8 mm, coronal image 35. Portal venous system appears patent. Adrenal glands, left kidney, spleen, and pancreas show no gross abnormality. Scattered cortical defects involving the upper and midpole of the right kidney suggests prior vascula r or infectious insults. [id number] atherosclerotic calcifications infrarenal abdominal aorta. Liquid stool seen throughout the colon mixed with solid stool. No dilated small bowel, free fluid, or free air along for the motion artifacts. No evident mesenteric or retroperitoneal lymphadenopathy allowing for the motion artifacts. Normal appendix visualized low in the right pelvis, refer to axial image 66 and coronal image 56. Mild circumferential bladder wall thickening may be due to nondistention. Uterus appears to be surgic ally absent. No abnormal fluid collection in the pelvis or pelvic lymphadenopathy. Both ovaries are v isualized. Bones: No osseous destructive process. IMPRESSION: 1. PROMINENT BREATHING MOTION LIMITING THE ASSESSMENT. 2. NORMAL APPENDIX IS VISUALIZED. 3. BILE DUCT DILATED AT 8 MM. THIS MAY BE CHRONIC IN THIS PATIENT. CORRELATE WITH ALKALINE PHOSPHATAS E AND BILIRUBIN LEVELS TO EXCLUDE BILIARY OBSTRUCTION. 4. MIXED LIQUID AND SOLID STOOL THROUGHOUT THE COLON. POSSIBLE ENTERITIS/COLITIS. 5. CIRCUMFERENTIAL BLADDER WALL THICKENING MAY BE SECONDARY TO CYSTITIS OR UNDERDISTENTION.
[2019-01-08 14:18] LABS: Amorphous Sediment,Urine Few /hpf; Appearance,Urine Cloudy (Clear); Bilirubin,Urine Negative (Negative); Blood,Urine Negative (Negative); Color,Urine Light Yellow; Glucose,Urine (UA) Negative (Negative); Ketones,Urine Negative (Negative); Leukocyte Esterase,Urine Negative (Negative); Mucus,Urine Rare /hpf; Nitrite,Urine Negative (Negative); Protein,Urine Negative (Negative); Squamous Epithelial Cell,Urine 1 /hpf (0-4); Urobilinogen,Urine <2.0 mg/dL (<2.0); WBC,Urine 1 /hpf (0-5)
[2019-01-08 14:24] LABS: Specific Gravity,Urine 1.047 (1.001-1.035)
[2019-01-08] MEDS ORDERED: KETOROLAC 30 MG/ML 1 ML VIAL IVP STA (14:26)
--- NOTE | 2019-01-08 14:42 | ED ---
Abdominal Pain HPI - General Chief Complaint: Abdominal Pain Stated Complaint: Abd pain Time Seen by Provider: 01/08/19 13:02 Source: patient Mode of arrival: ambulatory Limitations: no limitations - History of Present Illness Initial Comments: 38-year-old feel presenting today for chief complaint of abdominal pain 10 days. She states she has had on-and-off constipation and diarrhea. Patient states that the pain is localized to the mid abdomen, right lower abdomen. She denies any radiation. Patient denies any back pain dysuria urgency frequency she denies hematuria she denies fever chills night sweats. Patient denies any melena or hematochezia. Patient states that she has no upper abdominal pain chest pain or shortness of breath. She was sent by her primary care provider to rule out appendicitis.Patient denies any nausea or vomiting, numbness or tingling, dysuria or hematuria, headaches or visual changes, or any other complaints. - Related Data Home Medications Medication Instructions Recorded Confirmed Atenolol [Tenormin] 50 mg PO DAILY 04/10/16 01/08/19 cloNIDine HCL [Catapres] 0.2 mg PO BID 04/10/16 01/08/19 Calcium Carbonate/Vitamin D3 1 tab PO DAILY 05/02/17 01/08/19 [Calcium 600-Vit D3 400 Caplet] traZODone HCL 100 mg PO HS 05/02/17 01/08/19 Magnesium Oxide [Mag-Ox] 250 mg PO DAILY 01/08/19 01/08/19 lamoTRIgine [LaMICtal] 200 mg PO DAILY 01/08/19 01/08/19 Previous Rx's Medication Instructions Recorded Polyethylene Glycol 3350 [Miralax] 17 gm PO DAILY PRN 7 Days #7 packet 01/08/19 Allergies Allergy/AdvReac Type Severity Reaction Status Date / Time alendronate sodium Allergy Swelling Verified 01/08/19 13:14 [From Fosamax] codeine Allergy Unknown Verified 01/08/19 13:14 morphine Allergy Rash/Hives Verified 01/08/19 13:14 Review of Systems ROS Statement: Those systems with pertinent positive or pertinent negative responses have been documented in the HPI. ROS Other: All systems not noted in ROS Statement are negative. Past Medical History Past Medical History: GERD/Reflux, Hypertension, Rheumatoid Arthritis (RA) Additional Past Medical History / Comment(s): cervical cancer. gastric ulcers, raynauds,ruptured ear drum (lt) as child has some hearing loss. History of Any Multi-Drug Resistant Organisms: None Reported Past Surgical History: Bladder Surgery, Hysterectomy Additional Past Surgical History / Comment(s): ovarian/ cervical cancer removal, egd, colonoscopy Past Anesthesia/Blood Transfusion Reactions: No Reported Reaction Additional Past Anesthesia/Blood Transfusion Reaction / Comment(s): clausterphobic Past Psychological History: Anxiety Smoking Status: Current every day smoker Past Alcohol Use History: None Reported Past Drug Use History: None Reported - Past Family History Father Additional Family Medical History / Comment(s): ulcers Mother Additional Family Medical History / Comment(s): ibs General Exam - General Exam Comments Initial Comments: General: The patient is awake and alert, in no distress, and does not appear acutely ill. Eye: +3 mm pupils are equal, round and reactive to light, extra-ocular move ments are intact. No nystagmus. There is normal conjunctiva bilaterally. No signs of icterus. Ears, nose, mouth and throat: There are moist mucous membranes and no oral lesions. Neck: The neck is supple, there is no tenderness or JVD. Cardiovascular: There is a regular rate and rhythm. No murmur, rub or gallop is appreciated. Respiratory: Lungs are clear to auscultation, respirations are non-labored, breath sounds are equal. No wheezes, stridor, rales, or rhonchi. Gastrointestinal: Soft, non-distended, tender abdomen mid-diffuse without masses or organomegaly noted. There is no rebound or guarding present. No CVA tenderness. Bowel sounds are unremarkable. Musculoskeletal: Normal ROM, no tenderness. Strength 5/5. Sensation intact. Pulses equal bilaterally 2+. Neurological: A&O x 3. CN II-XII intact, There are no obvious motor or sensory deficits. Coordination appears grossly intact. Speech is normal. Skin: Skin is warm and dry and no rashes or lesions are noted. Psychiatric: Cooperative, appropriate mood & affect, normal judgment. Limitations: no limitations Course Vital Signs 01/08/19 01/08/19 12:59 15:23 Temperature 98.4 F Pulse Rate 90 88 Respiratory 18 16 Rate Blood Pressure 123/81 120/81 O2 Sat by Pulse 99 99 Oximetry Medical Decision Making - Medical Decision Making 38-year-old female presenting today for chief complaint of abdominal pain ongoing x 10 days that comes and goes and is cramping in nature. She has admitted to constipation and diarrhea. She denies fever. No point localized tenderness on examination. No rigidity no guarding or peritoneal irritation. No leukocytosis on laboratory studies. Patient has no transaminase elevation or pain in the right upper quadrant. CT revealed no acute abnormalities. Areas of fecal stasis and diarrhea consistent with possible enteritis. She unable to give stool sample. No active emesis in the emergency department. At this time feel patient is stable for discharge without patient gastroenterology follow-up. Patient is agreeable care plan and discharged. Patient is prescribed MiraLAX for constipation. I discussed the case attending provider Dr. Angulo was agreeable care plan discharge today he reviewed imaging and laboratory studies. Her parameters as well as follow-up were discussed at length patient who verbalizes understanding and is agreeable discharge at this time. - Lab Data Result diagrams: 01/08/19 13:05 01/08/19 13:05 Lab Results 01/08/19 01/08/19 01/08/19 Range/Units 13:05 13:05 13:45 WBC 10.0 (3.8-10.6) k/uL RBC 4.27 (3.80-5.40) m/uL Hgb 13.7 (11.4-16.0) gm/dL Hct 41.9 (34.0-46.0) % MCV 98.2 (80.0-100.0) fL MCH 32.2 (25.0-35.0) pg MCHC 32.8 (31.0-37.0) g/dL RDW 12.9 (11.5-15.5) % Plt Count 278 (150-450) k/uL Neutrophils % 69 % Lymphocytes % 20 % Monocytes % 5 % Eosinophils % 3 % Basophils % 0 % Neutrophils # 6.9 (1.3-7.7) k/uL Lymphocytes # 2.0 (1.0-4.8) k/uL Monocytes # 0.5 (0-1.0) k/uL Eosinophils # 0.3 (0-0.7) k/uL Basophils # 0.0 (0-0.2) k/uL Sodium 139 (137-145) mmol/L Potassium 4.4 (3.5-5.1) mmol/L Chloride 106 (98-107) mmol/L Carbon Dioxide 26 (22-30) mmol/L Anion Gap 7 mmol/L BUN 11 (7-17) mg/dL Creatinine 0.69 (0.52-1.04) mg/dL Est GFR (CKD-EPI)AfAm >90 (>60 ml/min/1.73 sqM) Est GFR (CKD-EPI)NonAf >90 (>60 ml/min/1.73 sqM) Glucose 124 H (74-99) mg/dL Calcium 10.7 H (8.4-10.2) mg/dL Total Bilirubin 0.5 (0.2-1.3) mg/dL AST 22 (14-36) U/L ALT 14 (9-52) U/L Alkaline Phosphatase 54 (38-126) U/L Total Protein 7.1 (6.3-8.2) g/dL Albumin 4.5 (3.5-5.0) g/dL Amylase 71 (30-110) U/L Lipase 96 (23-300) U/L Urine Color Light Yellow Urine Appearance Cloudy H (Clear) Urine pH 8.0 (5.0-8.0) Ur Specific [place] 1.047 H (1.001-1.035) Urine Protein Negative (Negative) Urine Glucose (UA) Negative (Negative) Urine Ketones Negative (Negative) Urine Blood Negative (Negative) Urine Nitrite Negative (Negative) Urine Bilirubin Negative (Negative) Urine Urobilinogen <2.0 (<2.0) mg/dL Ur Leukocyte Esterase Negative (Negative) Urine WBC 1 (0-5) /hpf Ur Squamous Epith Cells 1 (0-4) /hpf Amorphous Sediment Few H (None) /hpf Urine Mucus Rare H (None) /hpf Disposition Clinical Impression: Abdominal pain, Constipation Disposition: HOME SELF-CARE Condition: Good Instructions (If sedation given, give patient instructions): Abdominal Pain (ED) Additional Instructions: Please use medication as discussed. Please follow-up with family doctor in the next 2 days, and GI as discussed. Please return to emergency room if the symptoms increase or worsen or for any other concerns. Prescriptions: Polyethylene Glycol 3350 [Miralax] 17 gm PO DAILY PRN 7 Days #7 packet PRN Reason: Constipation Is patient prescribed a controlled substance at d/c from ED?: No Referrals: Antonia Goodrich DO [Primary Care Provider] - 1-2 days Kem Farris MD [STAFF PHYSICIAN] - 1-2 days Time of Disposition: 14:46
[2019-01-08 15:23] VITALS: BP 120/81; PULSE 88; RESP 16
== END 2019-01-08 15:20 | disposition home or self-care (01) ==
LOC: EC 12:57
DX: K59.00 Constipation, unspecified (principal); R10.31 Right lower quadrant pain; I10 Essential (primary) hypertension; Z85.41 Personal history of malignant neoplasm of cervix uteri; F41.9 Anxiety disorder, unspecified; F17.200 Nicotine dependence, unspecified, uncomplicated; Z79.899 Other long term (current) drug therapy; Z88.5 Allergy status to narcotic agent; Z88.8 Allergy status to other drugs, medicaments and biological substances; Z90.710 Acquired absence of both cervix and uterus
CPT/HCPCS: 36415; 80053; 82150; 83690; 85025; 81001; 74177; 99284; 96374; 96361; J1885; Q9967

== ENCOUNTER 2023-04-10 21:35 | Inpatient (IN) | payer OTHER ==
[2023-04-10] MEDS ORDERED: LORazepam 2 MG/ML INJ IV PRN (21:55)
[2023-04-10] MEDS ORDERED: THIAMINE 100 MG/ML 2 ML VIAL IM STA (21:55)
--- NOTE | 2023-04-10 22:06 | ED ---
General Adult HPI - General Chief complaint: Psychiatric Symptoms Stated complaint: Detox Time Seen by Provider: 04/10/23 21:38 Source: patient Mode of arrival: EMS Limitations: no limitations - History of Present Illness Initial comments: This is a 42-year-old female with a past medical history include hypertension and chronic alcoholism presents emergency department via EMS from [facility] for EtOH withdrawal. The patient stated that she normally drinks multiple fifths of liquor per day and stated that her last drink was at 4 AM. The patient then checked in to state her today for alcohol detox. The patient stated that she feels as if she is shaking and reportedly was having auditory and visual hallucinations. The patient did state that she attempted to stop alcohol by herself at home and did have a reported seizure several days ago. The patient was sent in by [facility] for continued alcohol detox and a medical setting. The patient on exam was ANO 4 but was tremulous and did report auditory and visual hallucinations. The patient was otherwise resting in bed comfortably. - Related Data Home Medications Medication Instructions Recorded Confirmed atenoloL [Tenormin] 50 mg PO DAILY 04/10/16 04/10/23 cloNIDine HCL [Catapres] 0.2 mg PO DAILY 04/10/16 04/10/23 Acetaminophen [Tylenol] 650 mg PO Q4H PRN 04/10/23 04/10/23 Albuterol Inhaler [Ventolin Hfa 2 puff INHALATION RT-QID PRN 04/10/23 04/10/23 Inhaler] Calcium, Magnesium, Zinc With 1 tab PO TID PRN 04/10/23 04/10/23 Vitamin D3 Ibuprofen [Motrin Ib] 600 mg PO Q6H PRN 04/10/23 04/10/23 LORazepam [Ativan] 1 - 2 mg PO DIRECTED PRN 04/10/23 04/10/23 Loperamide HCl [Imodium A-D] 4 mg PO QID PRN 04/10/23 04/10/23 Loratadine [Claritin] 10 mg PO DAILY PRN 04/10/23 04/10/23 Multivitamins, Thera [Multivitamin 1 tab PO DAILY 04/10/23 04/10/23 (formulary)] Thiamine [Vitamin B-1] 100 mg PO DAILY 04/10/23 04/10/23 ondansetron HCL [Zofran] 8 mg PO Q6H PRN 04/10/23 04/10/23 Allergies Allergy/AdvReac Type Severity Reaction Status Date / Time alendronate sodium Allergy Swelling Verified 04/10/23 22:18 [From Fosamax] codeine Allergy Unknown Verified 04/10/23 22:18 morphine Allergy Rash/Hives Verified 04/10/23 22:18 Review of Systems ROS Statement: Those systems with pertinent positive or pertinent negative responses have been documented in the HPI. ROS Other: All systems not noted in ROS Statement are negative. Past Medical History Past Medical History: GERD/Reflux, Hypertension, Rheumatoid Arthritis (RA) Additional Past Medical History / Comment(s): cervical cancer. gastric ulcers, raynauds,ruptured ear drum (lt) as child has some hearing loss. History of Any Multi-Drug Resistant Organisms: None Reported Past Surgical History: Bladder Surgery, Hysterectomy Additional Past Surgical History / Comment(s): ovarian/ cervical cancer removal, egd, colonoscopy Past Anesthesia/Blood Transfusion Reactions: No Reported Reaction Additional Past Anesthesia/Blood Transfusion Reaction / Comment(s): clausterphobic Past Psychological History: Anxiety Past Alcohol Use History: None Reported Past Drug Use History: None Reported - Past Family History Father Additional Family Medical History / Comment(s): ulcers Mother Additional Family Medical History / Comment(s): ibs General Exam Limitations: no limitations General appearance: alert, in no apparent distress, other (Tremulous) Head exam: Present: atraumatic, normocephalic, normal inspection Eye exam: Present: normal appearance, PERRL Pupils: Present: normal accommodation ENT exam: Present: normal exam, normal oropharynx, mucous membranes moist Neck exam: Present: normal inspection, full ROM Respiratory exam: Present: normal lung sounds bilaterally Cardiovascular Exam: Present: regular rate, normal rhythm, normal heart sounds GI/Abdominal exam: Present: soft, normal bowel sounds Extremities exam: Present: normal inspection, full ROM Back exam: Present: normal inspection, full ROM Neurological exam: Present: alert, oriented X3, CN II-XII intact Psychiatric exam: Present: normal affect, normal mood Skin exam: Present: warm, dry Course Vital Signs 04/10/23 04/10/23 22:02 23:12 Temperature 98.1 F Pulse Rate 98 92 Respiratory 19 19 Rate Blood Pressure 126/85 147/110 O2 Sat by Pulse 97 Oximetry EKG Findings - EKG Comments: EKG Findings:: An EKG was obtained and was interpreted by myself. Rate of 91, NM interval 135, QRS duration 94 and QTC of 383. This EKG showed a normal sinus rhythm with no ST segment elevation or depression noted. Medical Decision Making - Medical Decision Making Was pt. sent in by a medical professional or institution (, [facility], [facility], urgent care, hospital, or residential...) When possible be specific @ -Yes, sent in by [facility] Did you speak to anyone other than the patient for history (EMS, parent, family, police, friend...)? What history was obtained from this source @ -No Did you review nursing and triage notes (agree or disagree)? Why? @ -I reviewed and agree with nursing and triage notes Were old charts reviewed (outside hosp., previous admission, EMS record, old EKG, old radiological studies, urgent care reports/EKG's, residential records)? Report findings @ -No old charts were reviewed Differential Diagnosis (chest pain, altered mental status, abdominal pain women, abdominal pain men, vaginal bleeding, weakness, fever, dyspnea, syncope, headache, dizziness, GI bleed, back pain, seizure, CVA, palpatations, mental health)? @ -UTI, EtOH intoxication, alcohol abuse EKG interpreted by me (3pts min.). @ -As above X-rays interpreted by me (1pt min.). @ -None done CT interpreted by me (1pt min.). @ -None done U/S interpreted by me (1pt. min.). @ -None done What testing was considered but not performed or refused? (CT, X-rays, U/S, labs)? Why? @ -None What meds were considered but not given or refused? Why? @ -None Did you discuss the management of the patient with other professionals (stef ahmadi i.e. , [facility], [facility], lab, RT, psych nurse, social work associate, hardware sales assistant, teacher, chairman president and chief executive officer, case preparer and liner)? Give summary @ -Yes, admitting physician was contacted regarding patient admission. Was smoking cessation discussed for >3mins.? @ -No Was critical care preformed (if so, how long)? @ -No Were there social determinants of health that impacted care today? How? (Homelessness, low income, unemployed, alcoholism, drug addiction, transportation, low edu. Level, literacy, decrease access to med. care, snf, rehab)? @ -Chronic alcoholism Was there de-escalation of care discussed even if they declined (Discuss DNR or withdrawal of care, Hospice)? DNR status @ -No What co-morbidities impacted this encounter? (DM, HTN, Smoking, COPD, CAD, Cancer, CVA, ARF, Chemo, Hep., AIDS, mental health diagnosis, sleep apnea, morbid obesity)? @ -None Was patient admitted / discharged? Hospital course, mention meds given and route, prescriptions, significant lab abnormalities, going to OR and other pertinent info. @ -The patient was seen and evaluated in emergency department. Physical exam, the patient was resting in bed, tremulous present otherwise within normal limits. Vital signs were stable. Due to the nature the patient's complaints, a CIWA scale was obtained and was 13 and was given Ativan per protocol. Due to the patient's alcohol withdrawal, the patient will be admitted for further workup and evaluation. The patient was agreeable to this and all her questions were answered. The patient was admitted in stable condition. Undiagnosed new problem with uncertain prognosis? @ -No Drug Therapy requiring intensive monitoring for toxicity (Heparin, Nitro, Insulin, Cardizem)? @ -No Were any procedures done? @ -No Diagnosis/symptom? @ -Alcohol withdrawal, impending DTs Acute, or Chronic, or Acute on Chronic? @ -Acute Uncomplicated (without systemic symptoms) or Complicated (systemic symptoms)? @ -Complicated Side effects of treatment? @ -No Exacerbation, Progression, or Severe Exacerbation? @ -No Poses a threat to life or bodily function? How? (Chest pain, USA, SC, pneumonia, PE, COPD, DKA, ARF, appy, cholecystitis, CVA, Diverticulitis, Homicidal, Suicidal, threat to staff... and all critical care pts) @ -Yes, continued withdrawal can lead to DTs and possible . - Lab Data Result diagrams: 04/10/23 22:09 04/10/23 22:09 Lab Results 04/10/23 04/10/23 Range/Units 22:09 22:09 WBC 7.0 (3.8-10.6) k/uL RBC 3.54 L (3.80-5.40) m/uL Hgb 12.8 (11.4-16.0) gm/dL Hct 36.5 (34.0-46.0) % MCV 103.1 H (80.0-100.0) fL MCH 36.2 H (25.0-35.0) pg MCHC 35.1 (31.0-37.0) g/dL RDW 14.4 (11.5-15.5) % Plt Count 184 (150-450) k/uL MPV 7.3 Neutrophils % 55 % Lymphocytes % 29 % Monocytes % 7 % Eosinophils % 6 % Basophils % 1 % Neutrophils # 3.9 (1.3-7.7) k/uL Lymphocytes # 2.0 (1.0-4.8) k/uL Monocytes # 0.5 (0-1.0) k/uL Eosinophils # 0.4 (0-0.7) k/uL Basophils # 0.0 (0-0.2) k/uL Macrocytosis Slight Sodium 134 L (137-145) mmol/L Potassium 3.8 (3.5-5.1) mmol/L Chloride 105 (98-107) mmol/L Carbon Dioxide 25 (22-30) mmol/L Anion Gap 4 mmol/L BUN 13 (7-17) mg/dL Creatinine 0.54 (0.52-1.04) mg/dL Est GFR (CKD-EPI)AfAm >90 (>60 ml/min/1.73 sqM) Est GFR (CKD-EPI)NonAf >90 (>60 ml/min/1.73 sqM) Glucose 96 (74-99) mg/dL Calcium 10.3 H (8.4-10.2) mg/dL Magnesium 1.7 (1.6-2.3) mg/dL Total Bilirubin 1.0 (0.2-1.3) mg/dL AST 47 H (14-36) U/L ALT 22 (4-34) U/L Alkaline Phosphatase 88 (38-126) U/L Total Protein 6.5 (6.3-8.2) g/dL Albumin 3.7 (3.5-5.0) g/dL Lipase 275 (23-300) U/L Serum Alcohol <10 mg/dL Disposition Clinical Impression: Alcohol withdrawal Disposition: ADMITTED IP TO THIS HOSP Condition: Stable Is patient prescribed a controlled substance at d/c from ED?: No Referrals: None,Stated [REFERRING] - 1-2 days Time of Disposition: 23:00 Decision to Admit Reason: Admit from EC Decision Date: 04/10/23 Decision Time: 23:00
[2023-04-10 22:36] LABS: Basophils % (A) 1 %; Eosinophils # (A) 0.4 k/uL (0-0.7); Eosinophils % (A) 6 %; HCT 36.5 % (34.0-46.0); HGB 12.8 gm/dL (11.4-16.0); Lymphocytes % (A) 29 %; MCH 36.2 pg (25.0-35.0); MCHC 35.1 g/dL (31.0-37.0); MCV 103.1 fL (80.0-100.0); Macrocytosis Slight; Mean Platelet Volume 7.3; Monocytes # (A) 0.5 k/uL (0-1.0); Monocytes % (A) 7 %; Neutrophils # (A) 3.9 k/uL (1.3-7.7); Neutrophils % (A) 55 %; Platelet Count 184 k/uL (150-450); RBC 3.54 m/uL (3.80-5.40); RDW 14.4 % (11.5-15.5)
[2023-04-10 22:51] LABS: ALT 22 U/L (4-34); AST 47 U/L (14-36); African American GFR (CKD) >90 (>60 ml/min/1.73 sqM); Albumin 3.7 g/dL (3.5-5.0); Alcohol <10 mg/dL; Alkaline Phosphatase 88 U/L (38-126); Anion Gap 4 mmol/L; Blood Urea Nitrogen 13 mg/dL (7-17); Calcium 10.3 mg/dL (8.4-10.2); Carbon Dioxide 25 mmol/L (22-30); Chloride 105 mmol/L (98-107); Glucose 96 mg/dL (74-99); Lipase 275 U/L (23-300); Magnesium 1.7 mg/dL (1.6-2.3); Non-African American GFR(CKD) >90 (>60 ml/min/1.73 sqM); Potassium 3.8 mmol/L (3.5-5.1); Sodium 134 mmol/L (137-145); Total Protein 6.5 g/dL (6.3-8.2)
[2023-04-10] MEDS: LORazepam 2 MG/ML INJ IV PRN (23:10)
[2023-04-10] MEDS ORDERED: NALOXONE 0.4 MG/ML 1 ML VIAL IV PRN (23:20)
[2023-04-10] MEDS ORDERED: ONDANSETRON 4 MG/2 ML VIAL IVP STA (23:26)
[2023-04-11] MEDS: LORazepam 2 MG/ML INJ IV PRN ×7 (00:20→21:07)
[2023-04-11] MEDS ORDERED: NICOTINE 21MG/24HR PATCH TRANSDERM STA (03:00)
[2023-04-11] MEDS ORDERED: LORATADINE 10 MG TAB PO PRN (05:36)
[2023-04-11] MEDS ORDERED: ALBUTEROL NEBULIZED 2.5 MG/3 ML INHALATION PRN (05:36)
[2023-04-11] MEDS ORDERED: IPRATROPIUM-ALBUTEROL 3 ML NEB INHALATION STA (08:10)
[2023-04-11] MEDS ORDERED: DEXTROSE 50% SYRINGE 50 ML IVP PRN ×2 (08:12)
--- NOTE | 2023-04-11 08:17 | P.HPIM ---
History of Present Illness This is a pleasant 42 years old female with multiple medical problems including GERD/Reflux, Hypertension, Rheumatoid Arthritis ,cervical cancer, Raynaud's and gastric ulcer Patient originally was sent from [facility] for alcohol withdrawal Patient's is a known alcoholic drinker, she drinks 2 fifths every day, she smokes about 1-2.5 packs per day and she was counseled to quit and she agrees to the nicotine patch. She uses marijuana here and there but nothing else. She wanted to quit because of her children she tried to go cold turkey at home but she developed withdrawal seizure so she admitted herself to [facility] refer her eventually to this facility. (Patient has a remote history of seizure but not on any seizure medication) Patient has been complaining of from visual hallucination times one day, she states that she sees white lites, also she thinks she is having auditory hallucination as she had someone called hernia but no one was there. She has sleeping difficulty she has diarrhea about 6 times per day but no abdominal pain. Imodium help in her no urinary symptoms she has mild headache but no dizziness weakness numbness or pleural effusion She is complaining from dyspnea. But she is not tachypneic at rest. Patient also has been complaining of from back pain 2 months, no history of trauma or falls. Patient feels depressed but no suicidal. Hemodynamically patient is a stable. Labs unremarkable CBC, BMP, liver enzymes and lipase. Serum alcohol less than 10. EKG showing normal sinus rhythm at [address]-T changes. QTC 383 Review of Systems Review of systems CONSTITUTIONAL: No fever, no malaise, no fatigue. HEENT: No recent visual problems or hearing problems. Denied any sore throat. CARDIOVASCULAR: No orthopnea, PND, no palpitations, no syncope. PULMONARY: No shortness of breath, no cough, no hemoptysis. GASTROINTESTINAL: No diarrhea, no nausea, no vomiting, no abdominal pain. Normoactive bowel sounds. NEUROLOGICAL: No headaches, no weakness, no numbness. HEMATOLOGICAL: Denies any bleeding or petechiae. GENITOURINARY: Denies any burning micturition, frequency, or urgency. MUSCULOSKELETAL/RHEUMATOLOGICAL: Denies any joint pain, swelling, or any muscle pain. ENDOCRINE: Denies any polyuria or polydipsia. Past Medical History Past Medical History: GERD/Reflux, Hypertension, Rheumatoid Arthritis (RA) Additional Past Medical History / Comment(s): cervical cancer. gastric ulcers, raynauds,ruptured ear drum (lt) as child has some hearing loss. History of Any Multi-Drug Resistant Organisms: None Reported Past Surgical History: Bladder Surgery, Hysterectomy Additional Past Surgical History / Comment(s): ovarian/ cervical cancer removal, egd, colonoscopy Past Anesthesia/Blood Transfusion Reactions: No Reported Reaction Additional Past Anesthesia/Blood Transfusion Reaction / Comment(s): clausterpho bic Past Psychological History: Anxiety Past Alcohol Use History: None Reported Past Drug Use History: None Reported - Past Family History Father Additional Family Medical History / Comment(s): ulcers Mother Additional Family Medical History / Comment(s): ibs Medications and Allergies Home Medications Medication Instructions Recorded Confirmed Type atenoloL [Tenormin] 50 mg PO DAILY 04/10/16 04/10/23 History cloNIDine HCL [Catapres] 0.2 mg PO DAILY 04/10/16 04/10/23 History Acetaminophen [Tylenol] 650 mg PO Q4H PRN 04/10/23 04/10/23 History Albuterol Inhaler [Ventolin Hfa 2 puff INHALATION RT-QID PRN 04/10/23 04/10/23 History Inhaler] Calcium, Magnesium, Zinc With 1 tab PO TID PRN 04/10/23 04/10/23 History Vitamin D3 Ibuprofen [Motrin Ib] 600 mg PO Q6H PRN 04/10/23 04/10/23 History LORazepam [Ativan] 1 - 2 mg PO DIRECTED PRN 04/10/23 04/10/23 History Loperamide HCl [Imodium A-D] 4 mg PO QID PRN 04/10/23 04/10/23 History Loratadine [Claritin] 10 mg PO DAILY PRN 04/10/23 04/10/23 History Multivitamins, Thera [Multivitamin 1 tab PO DAILY 04/10/23 04/10/23 History (formulary)] Thiamine [Vitamin B-1] 100 mg PO DAILY 04/10/23 04/10/23 History ondansetron HCL [Zofran] 8 mg PO Q6H PRN 04/10/23 04/10/23 History Allergies Allergy/AdvReac Type Severity Reaction Status Date / Time alendronate sodium Allergy Swelling Verified 04/10/23 22:18 [From Fosamax] codeine Allergy Unknown Verified 04/10/23 22:18 morphine Allergy Rash/Hives Verified 04/10/23 22:18 Physical Exam Vitals: Vital Signs Temp Pulse Resp BP Pulse Ox 04/11/23 03:32 91 17 04/11/23 01:45 77 17 124/82 98 04/11/23 00:05 98 17 100/67 04/10/23 23:12 92 19 147/110 04/10/23 22:02 98.1 F 98 19 126/85 97 Intake and Output 04/10/23 04/10/23 04/11/23 14:59 22:59 06:59 Other: Weight 52.617 kg Results CBC & Chem 7: 04/10/23 22:09 04/10/23 22:09 Labs: Abnormal Lab Results - Last 24 Hours (Table) 04/10/23 04/10/23 Range/Units 22:09 22:09 RBC 3.54 L (3.80-5.40) m/uL MCV 103.1 H (80.0-100.0) fL MCH 36.2 H (25.0-35.0) pg Sodium 134 L (137-145) mmol/L Calcium 10.3 H (8.4-10.2) mg/dL AST 47 H (14-36) U/L Assessment and Plan Assessment: Alcohol withdrawal and delirium tremens Acute COPD exacerbation Nicotine dependence Insomnia alcohol withdrawal seizure diarrhea, most likely reactive or due to alcohol effect History of GERD History of rheumatoid arthritis History of gastric ulcer History of Raynaud's History of hysterectomy for cancer cells and bleeding as per patient Plan: Continue with CIWA protocol Thiamine Psychiatric consult No need for antiseizure medication as her seizure is related to alcohol withdrawal for now Start steroids, systemic with a breathing treatment Check for C. diff although the suspicion for infection is low at most likely due to to alcohol effect Continue with gentle hydration Labs and medication were reviewed.. Continue same treatment. Continue with symptomatic treatment. Resume home medication. Monitor labs and vitals. DVT and GI prophylaxis. Further recommendations as per clinical course of the patient DVT prophylaxis: Subcutaneous heparin GI Prophylaxis: Pepcid PT/OT: Pending Prognosis is guarded
[2023-04-11] MEDS: THIAMINE 100 MG TAB PO SCH (08:20)
[2023-04-11] MEDS: cloNIDine HCL 0.2 MG TAB PO SCH (08:20)
[2023-04-11] MEDS: MULTIVITAMINS, THERA 1 EACH TAB PO SCH (08:20)
[2023-04-11] MEDS: SODIUM CHLORIDE 0.9% 1,000 ML IV SCH ×2 (08:35→21:11)
[2023-04-11] MEDS: methylPREDNISolone SOD SUCCI 40 MG/ML 1 ML VIAL IV SCH ×2 (08:38→16:02)
[2023-04-11] MEDS: FAMOTIDINE 20 MG/2 ML VIAL IV SCH ×2 (08:40→21:04)
[2023-04-11] MEDS: HEPARIN SODIUM,PORCINE 5,000 UNIT/ML 1 ML VIAL SQ SCH ×2 (08:43→21:04)
[2023-04-11] MEDS: IPRATROPIUM-ALBUTEROL 3 ML NEB INHALATION PRN ×2 (09:39→17:11)
[2023-04-11 12:04] LABS: Glucose,Whole Blood 150 mg/dL (70-110)
[2023-04-11] MEDS: INSULIN ASPART (NovoLOG) 100 UNIT/ML VIAL SQ SCH ×3 (12:30→21:05)
--- NOTE | 2023-04-11 14:00 | P.CN ---
Psychiatric Consult - . Consult date: 04/11/23 Consult:: 04/11/23 13:59 IDENTIFYING DATA: This patient is a 42-year-old female with significant history of alcohol use disorder and depression who presents for hospital on 04/10/2023 from [facility] after experiencing seizure and hallucinations HISTORY OF PRESENT ILLNESS: Present next to the patient is her mother. The patient is agreeable to having the psychiatric interview with her mother present. The patient presented to the hospital on 04/10/2023, brought to the hospital by EMS from [facility] for alcohol withdrawal. The patient was checking herself into [facility] for alcohol detoxification. She then experienced severe tremulousness and began having auditory and visual hallucinations. Reportedly, the patient attempted to stop alcohol a few days prior however she did have a seizure. Psychiatry has been consulted for evaluation of depression and alcohol use disorder. Upon evaluation by the psychiatry, the patient reports that she has been drinking 2-3 fifths of liquor daily for the past year and a half. She reports that she was sober for 5 years but relapsed into heavy alcohol use after the of her father followed shortly after by the of her son. She reports significant signs and symptoms of depression including low mood, excessive guilt, crying episodes, elevated anxiety, poor sleep, and poor appetite. She is however vehemently denying any suicidal or homicidal ideation, intention, and/or plan. She reports one prior attempt at suicide more than 10 years ago. She states that she has a strong duty to her family as a protective factor. The patient reports no significant history of auditory or visual hallucinations aside from what happened at [facility]. She denies any significant history of paranoia or other delusions. She reports no current psychotic symptoms. She does not provide any history significant for bipolar disorder. She reports no increased goal-directed activity, grandiosity, or periods of excessive energy. The patient does not wish to return to [facility] upon discharge. She reports that she would like to be detoxed in the medical setting followed by outpatient substance abuse rehabilitation. PAST PSYCHIATRIC HISTORY: Patient has a history of depression "ADHD." Patient recalls being previously prescribed Cymbalta. She reports one prior psychiatric hospitalization on our psychiatric unit more than 10 years ago. She reports that she was previously seeing a psychiatrist in [place], [place] however is currently not open with any outpatient treatment. She reports one prior attempt at suicide within 10 years ago. PAST MEDICAL HISTORY: . Past Medical History: GERD/Reflux, Hypertension, Rheumatoid Arthritis (RA) Additional Past Medical History / Comment(s): cervical cancer. gastric ulcers, raynauds,ruptured ear drum (lt) as child has some hearing loss. History of Any Multi-Drug Resistant Organisms: None Reported Past Surgical History: Bladder Surgery, Hysterectomy Additional Past Surgical History / Comment(s): ovarian/ cervical cancer removal, egd, colonoscopy Past Anesthesia/Blood Transfusion Reactions: No Reported Reaction Additional Past Anesthesia/Blood Transfusion Reaction / Comment(s): clausterphobic Past Psychological History: Anxiety Past Alcohol Use History: None Reported Past Drug Use History: None Reported ALLERGIES: Allergies Allergy/AdvReac Type Severity Reaction Status Date / Time alendronate sodium Allergy Swelling Verified 04/10/23 22:18 [From Fosamax] codeine Allergy Unknown Verified 04/10/23 22:18 morphine Allergy Rash/Hives Verified 04/10/23 22:18 CHEMICAL DEPENDENCY HISTORY: Patient reports one pack per day of tobacco use. She reports drinking up to 3 fifths of liquor per day, most days, for the past year and a half. FAMILY PSYCHIATRIC/SUBSTANCE USE HISTORY: denies SOCIAL HISTORY: Patient has 5 living children. She currently lives with her mother, 2 sons, and a daughter. She reports strong family support. MENTAL STATUS EXAM: General Appearance: Patient appears to be stated age is alert, pleasant, and cooperative. Patient appears to have fair hygiene and grooming wearing hospital gown with fair eye contact. Behavior: Patient is calmly lying in bed without any agitated behavior. Speech: Patient's speech is fluent and nonpressured. Mood/Affect: Patient reports their mood is "depressed and guilty", affect is congruent and tearful. Suicidality/Homicidality: Patient vehemently denies any suicidal or homicidal ideation, intention, and/or plan. Perceptions: Patient currently denies any auditory or visual hallucinations. Though content/process: There is no evidence of any delusional thought content and thought process is linear and goal-directed. Memory and concentration: AOX3, grossly intact for the purposes of this session. Can spell "WORLD" backwards Judgment and insight: Fair Vital Signs Temp 98.1 F 04/11/23 07:34 Pulse 94 08/17/23 10:24 Resp 18 04/11/23 10:24 BP 126/83 04/11/23 10:24 Pulse Ox 97 04/11/23 10:24 FiO2 Intake & Output 04/10/23 04/11/23 04/11/23 18:59 06:59 18:59 Weight 52.617 kg Laboratory Results WBC 7.0 k/uL (3.8-10.6) 04/10/23 22:09 RBC 3.54 m/uL (3.80-5.40) L 04/10/23 22:09 Hgb 12.8 gm/dL (11.4-16.0) 04/10/23 22:09 Hct 36.5 % (34.0-46.0) 04/10/23 22:09 MCV 103.1 fL (80.0-100.0) H 04/10/23 22:09 MCH 36.2 pg (25.0-35.0) H 04/10/23 22:09 MCHC 35.1 g/dL (31.0-37.0) 04/10/23 22:09 RDW 14.4 % (11.5-15.5) 04/10/23 22:09 Plt Count 184 k/uL (150-450) 04/10/23 22:09 MPV 7.3 04/10/23 22:09 Neutrophils % 55 % 04/10/23 22:09 Lymphocytes % 29 % 04/10/23 22:09 Monocytes % 7 % 04/10/23 22:09 Eosinophils % 6 % 04/10/23 22:09 Basophils % 1 % 04/10/23 22:09 Neutrophils # 3.9 k/uL (1.3-7.7) 04/10/23 22:09 Lymphocytes # 2.0 k/uL (1.0-4.8) 04/10/23 22:09 Monocytes # 0.5 k/uL (0-1.0) 04/10/23 22:09 Eosinophils # 0.4 k/uL (0-0.7) 04/10/23 22:09 Basophils # 0.0 k/uL (0-0.2) 04/10/23 22:09 Macrocytosis Slight 04/10/23 22:09 Sodium 134 mmol/L (137-145) L 04/10/23 22:09 Potassium 3.8 mmol/L (3.5-5.1) 04/10/23 22:09 Chloride 105 mmol/L (98-107) 04/10/23 22:09 Carbon Dioxide 25 mmol/L (22-30) 04/10/23 22:09 Anion Gap 4 mmol/L 04/10/23 22:09 BUN 13 mg/dL (7-17) 04/10/23 22:09 Creatinine 0.54 mg/dL (0.52-1.04) 04/10/23 22:09 Est GFR (CKD-EPI)AfAm >90 (>60 ml/min/1.73 sqM) 04/10/23 22:09 Est GFR (CKD-EPI)NonAf >90 (>60 ml/min/1.73 sqM) 04/10/23 22:09 Glucose 96 mg/dL (74-99) 04/10/23 22:09 POC Glucose (mg/dL) 150 mg/dL (70-110) H 04/11/23 12:03 POC Glu [employer] Gris Herbert T 04/11/23 12:03 Calcium 10.3 mg/dL (8.4-10.2) H 04/10/23 22:09 Magnesium 1.7 mg/dL (1.6-2.3) 04/10/23 22:09 Total Bilirubin 1.0 mg/dL (0.2-1.3) 04/10/23 22:09 AST 47 U/L (14-36) H 04/10/23 22:09 ALT 22 U/L (4-34) 04/10/23 22:09 Alkaline Phosphatase 88 U/L (38-126) 04/10/23 22:09 Total Protein 6.5 g/dL (6.3-8.2) 04/10/23 22:09 Albumin 3.7 g/dL (3.5-5.0) 04/10/23 22:09 Lipase 275 U/L (23-300) 04/10/23 22:09 HCG, Qual Not Detected 04/10/23 22:09 Serum Alcohol <10 mg/dL 04/10/23 22:09 IMPRESSIONS: Alcohol use disorder, severe Acute alcohol withdrawal with concerns for delirium tremens Major depressive disorder, recurrent, moderate Nicotine dependence PLAN: -Continue your medical management for acute alcohol withdrawal -At this time patient DOES NOT meet criteria for inpatient psychiatric admission. The patient is not presenting with imminent risk of harm to self or others. However, she is at chronically elevated risk due to the general population due to a prior attempt suicide and heavy alcohol use. She does have protective factors including duty to her children and support from her family. -Would recommend the following medication changes/additions: Start Cymbalta 30 mg by mouth twice a day for depression/anxiety Start Remeron 7.5 mg by mouth at bedtime for depression/appetite stimulation/insomnia -Risks, benefits, and treatment alternatives were discussed with the patient in detail. -This provider discussed medications in order to help with alcohol cessation such as naltrexone and acamprosate. Patient is not interested in starting these medications at this time. -Patient does not require one-to-one sitter -Approximately 20 minutes are spent providing patient with supportive psychotherapy. Patient was counseled at great length on abstaining from all substances including alcohol, marijuana, and all illicit drugs. The patient is not interested in inpatient substance abuse rehabilitation at this time. After detox, the patient wishes to continue treatment in the outpatient setting. -Recommend outpatient psychiatry follow-up -Psychiatry will sign off at this point, please contact with any questions. 04/11/23 13:59
[2023-04-11 17:27] LABS: Glucose,Whole Blood 269 mg/dL (70-110)
[2023-04-11 20:50] LABS: Glucose,Whole Blood 174 mg/dL (70-110)
[2023-04-11] MEDS: MIRTAZAPINE 15 MG TAB PO SCH (21:05)
[2023-04-11] MEDS: ACETAMINOPHEN TAB 325 MG TAB PO PRN (21:06)
[2023-04-11] MEDS: DULoxetine HCL 30 MG CAPSULE.DR PO SCH (21:11)
[2023-04-12] MEDS: LORazepam 2 MG/ML INJ IV PRN ×9 (01:00→22:02)
[2023-04-12] MEDS: IBUPROFEN 600 MG TAB PO PRN ×4 (01:00→21:45)
[2023-04-12] MEDS: methylPREDNISolone SOD SUCCI 40 MG/ML 1 ML VIAL IV SCH ×2 (01:00→08:24)
[2023-04-12 06:14] LABS: Glucose,Whole Blood 138 mg/dL (70-110)
[2023-04-12] MEDS: INSULIN ASPART (NovoLOG) 100 UNIT/ML VIAL SQ SCH ×4 (06:15→21:16)
[2023-04-12] MEDS: HEPARIN SODIUM,PORCINE 5,000 UNIT/ML 1 ML VIAL SQ SCH ×2 (08:24→20:48)
[2023-04-12] MEDS: FAMOTIDINE 20 MG/2 ML VIAL IV SCH ×2 (08:24→20:48)
[2023-04-12] MEDS: THIAMINE 100 MG TAB PO SCH (08:25)
[2023-04-12] MEDS: MULTIVITAMINS, THERA 1 EACH TAB PO SCH (08:25)
[2023-04-12] MEDS: cloNIDine HCL 0.2 MG TAB PO SCH (08:25)
[2023-04-12] MEDS: ACETAMINOPHEN TAB 325 MG TAB PO PRN ×3 (08:36→20:45)
[2023-04-12] MEDS: IPRATROPIUM-ALBUTEROL 3 ML NEB INHALATION PRN ×3 (08:44→19:57)
[2023-04-12] MEDS ORDERED: ALPRAZolam 0.5 MG TAB PO STA ×2 (09:44→13:11)
[2023-04-12 11:08] LABS: Basophils # (A) 0.02 X 10*3/uL (0.00-0.10); Basophils % (A) 0.1 %; Eosinophils # (A) 0 X 10*3/uL (0.04-0.35); Eosinophils % (A) 0 %; HCT 34.8 % (37.2-46.3); HGB 11.7 d/dL (12.0-15.0); Lymphocytes # (A) 0.59 X 10*3/uL (0.90-5.00); MCHC 33.6 d/dL (32.0-37.0); MCV 104.2 FL (80.0-97.0); Mean Platelet Volume 10.1 FL (9.5-12.2); Monocytes # (A) 0.54 X 10*3/uL (0.20-1.00); Monocytes % (A) 3.7 %; NRBC Per 100 WBC 0 X 10*3/uL (0.00-0.01); Neutrophils # (A) 13.41 X 10*3/uL (1.80-7.70); Platelet Count 179 X 10*3/uL (140-440); RBC 3.34 X 10*6/uL (4.10-5.20); RDW 14.7 % (11.5-14.5); WBC 14.59 X 10*3/uL (4.50-10.00)
[2023-04-12] MEDS ORDERED: ONDANSETRON 4 MG/2 ML VIAL IVP STA (11:10)
[2023-04-12 11:21] LABS: Glucose,Whole Blood 186 mg/dL (70-110)
[2023-04-12] MEDS: DULoxetine HCL 30 MG CAPSULE.DR PO SCH ×2 (11:52→21:16)
[2023-04-12] MEDS: NICOTINE 21MG/24HR PATCH TRANSDERM SCH (12:01)
[2023-04-12] MEDS ORDERED: SYMBICORT 160-4.5 MCG INHALER INHALATION STA (12:58)
--- NOTE | 2023-04-12 13:00 | P.PN ---
Subjective This is a pleasant 42 years old female with multiple medical problems including GERD/Reflux, Hypertension, Rheumatoid Arthritis ,cervical cancer, Raynaud's and gastric ulcer Patient originally was sent from [facility] for alcohol withdrawal Patient's is a known alcoholic drinker, she drinks 2 fifths every day, she smokes about 1-2.5 packs per day and she was counseled to quit and she agrees to the nicotine patch. She uses marijuana here and there but nothing else. She wanted to quit because of her children she tried to go cold turkey at home but she developed withdrawal seizure so she admitted herself to [facility] refer her eventually to this facility. (Patient has a remote history of seizure but not on any seizure medication) Patient has been complaining of from visual hallucination times one day, she states that she sees white lites, also she thinks she is having auditory hallucination as she had someone called hernia but no one was there. She has sleeping difficulty she has diarrhea about 6 times per day but no abdominal pain. Imodium help in her no urinary symptoms she has mild headache but no dizziness weakness numbness or pleural effusion She is complaining from dyspnea. But she is not tachypneic at rest. Patient also has been complaining of from back pain 2 months, no history of trauma or falls. Patient feels depressed but no suicidal. Hemodynamically patient is a stable. Labs unremarkable CBC, BMP, liver enzymes and lipase. Serum alcohol less than 10. EKG showing normal sinus rhythm at [address]-T changes. QTC 383 04/12/2023 Patient admitted mainly for alcohol withdrawal and delirium tremens which is a severe reaction and evaluated by psychiatrist. Also she has some elements of wheezing, her bronchospasm is significantly improved and therefore we're going to lower the dose of IV Solu-Medrol 40 mg and to oral prednisone 2 days and then stop the systemic and continue with S ymbicort to decrease the chances of side effects of steroids on mentation and alert. Patient still have some evidence of tremor and withdrawal symptoms, this morning she had a hallucination OR father, she felt ehe is real and she was crying. 1 tab of Xanax 0.5 mg S provided for her She remains on CIWA protocol and gentle hydration Objective - Vital Signs Vital signs: Vital Signs Temp 98.0 F 04/12/23 07:18 Pulse 86 04/12/23 08:55 Resp 16 04/12/23 07:18 BP 165/104 04/12/23 07:18 Pulse Ox 98 04/12/23 07:18 FiO2 Intake & Output 04/11/23 04/12/23 04/12/23 18:59 06:59 18:59 Weight 52.617 kg Other: Voiding Method Toilet # Voids 3 - Exam -GENERAL: The patient is alert and oriented x3, not in any acute distress. Well developed, well nourished. She has mild tremor and extremities and trunk. She was crying when she remembered her father HEENT: Pupils are round and equally reacting to light. EOMI. No scleral icterus. No conjunctival pallor. Normocephalic, atraumatic. No pharyngeal erythema. No thyromegaly. CARDIOVASCULAR: S1 and S2 present. No murmurs, rubs, or gallops. PULMONARY: Chest is clear to auscultation, no wheezing , no crackles. ABDOMEN: Soft, nontender, nondistended, normoactive bowel sounds. No palpable organomegaly. MUSCULOSKELETAL: No joint swelling or deformity. EXTREMITIES: No cyanosis, clubbing, or pedal edema. NEUROLOGICAL: Gross neurological examination did not reveal any focal deficits. SKIN: No rashes. no petechiae. - Labs CBC & Chem 7: 04/12/23 07:11 04/10/23 22:09 Labs: Abnormal Lab Results - Last 24 Hours (Table) 04/11/23 04/11/23 04/12/23 Range/Units 17:24 20:49 06:12 WBC (4.50-10.00) X 10*3/uL RBC (4.10-5.20) X 10*6/uL Hgb (12.0-15.0) d/dL Hct (37.2-46.3) % MCV (80.0-97.0) FL MCH (27.0-32.0) pg RDW (11.5-14.5) % Neutrophils # (1.80-7.70) X 10*3/uL Lymphocytes # (0.90-5.00) X 10*3/uL Eosinophils # (0.04-0.35) X 10*3/uL POC Glucose (mg/dL) 269 H 174 H 138 H (70-110) mg/dL 04/12/23 04/12/23 Range/Units 07:11 11:19 WBC 14.59 H (4.50-10.00) X 10*3/uL RBC 3.34 L (4.10-5.20) X 10*6/uL Hgb 11.7 L (12.0-15.0) d/dL Hct 34.8 L (37.2-46.3) % MCV 104.2 H (80.0-97.0) FL MCH 35.0 H (27.0-32.0) pg RDW 14.7 H (11.5-14.5) % Neutrophils # 13.41 H (1.80-7.70) X 10*3/uL Lymphocytes # 0.59 L (0.90-5.00) X 10*3/uL Eosinophils # 0 L (0.04-0.35) X 10*3/uL POC Glucose (mg/dL) 186 H (70-110) mg/dL Assessment and Plan Assessment: Alcohol withdrawal and delirium tremens Acute COPD exacerbation Nicotine dependence Insomnia alcohol withdrawal seizure diarrhea, most likely reactive or due to alcohol effect History of GERD History of rheumatoid arthritis History of gastric ulcer History of Raynaud's History of hysterectomy for cancer cells and bleeding as per patient Plan: Continue with CIWA protocol Thiamine Psychiatric consult No need for antiseizure medication as her seizure is related to alcohol withdrawal for now Short dose of prednisone and continue Symbicort Check for C. diff although the suspicion for infection is low at most likely due to to alcohol effect Continue with gentle hydration Labs and medication were reviewed.. Continue same treatment. Continue with symptomatic treatment. Resume home medication. Monitor labs and vitals. DVT and GI prophylaxis. Further recommendations as per clinical course of the patient DVT prophylaxis: Subcutaneous heparin GI Prophylaxis: Pepcid PT/OT: Pending Prognosis is guarded
[2023-04-12] MEDS: predniSONE 20 MG TAB PO SCH (13:10)
[2023-04-12] MEDS: SODIUM CHLORIDE 0.9% 1,000 ML IV SCH (13:12)
[2023-04-12 13:19] LABS: ALT 19 U/L (8-44); AST 23 U/L (13-35); Albumin 3.9 d/dL (3.8-4.9); Albumin/Globulin Ratio 2.05 Ratio (1.60-3.17); Alkaline Phosphatase 71 U/L (41-126); Bilirubin, Conjugated <0.20 mg/dL (0.20-0.40); Bilirubin,Unconjugated >0.30 mg/dL (0.20-1.00); Blood Urea Nitrogen 7.2 mg/dL (9.0-27.0); Calcium 10.1 mg/dL (8.7-10.3); Carbon Dioxide 22.3 mmol/L (21.6-31.8); Chloride 107 mmol/L (96-109); Globulin 1.9 d/dL (1.6-3.3); Glucose 135 mg/dL (70-110); Potassium 4.6 mmol/L (3.5-5.5); Sodium 139 mmol/L (135-145); Total Bilirubin 0.5 mg/dL (0.3-1.2); Total Protein 5.8 d/dL (6.2-8.2)
[2023-04-12 14:41] VITALS: BMI 20.5
[2023-04-12 17:17] LABS: Glucose,Whole Blood 186 mg/dL (70-110)
[2023-04-12] MEDS: MIRTAZAPINE 15 MG TAB PO SCH (20:47)
[2023-04-12 20:48] LABS: Glucose,Whole Blood 271 mg/dL (70-110)
[2023-04-13] MEDS: LORazepam 2 MG/ML INJ IV PRN ×10 (02:17→19:53)
[2023-04-13] MEDS: ONDANSETRON 4 MG/2 ML VIAL IVP PRN ×2 (02:25→18:42)
[2023-04-13] MEDS: IBUPROFEN 600 MG TAB PO PRN ×2 (03:32→12:23)
[2023-04-13 06:29] LABS: Glucose,Whole Blood 116 mg/dL (70-110)
[2023-04-13] MEDS: INSULIN ASPART (NovoLOG) 100 UNIT/ML VIAL SQ SCH ×4 (06:36→21:23)
[2023-04-13] MEDS: IPRATROPIUM-ALBUTEROL 3 ML NEB INHALATION PRN ×4 (07:32→20:39)
[2023-04-13] MEDS: THIAMINE 100 MG TAB PO SCH (08:31)
[2023-04-13] MEDS: cloNIDine HCL 0.2 MG TAB PO SCH (08:31)
[2023-04-13] MEDS: DULoxetine HCL 30 MG CAPSULE.DR PO SCH ×2 (08:31→21:13)
[2023-04-13] MEDS: NICOTINE 21MG/24HR PATCH TRANSDERM SCH (08:31)
[2023-04-13] MEDS: predniSONE 20 MG TAB PO SCH (08:31)
[2023-04-13] MEDS: FAMOTIDINE 20 MG/2 ML VIAL IV SCH ×2 (08:32→20:30)
[2023-04-13] MEDS: MULTIVITAMINS, THERA 1 EACH TAB PO SCH (08:32)
[2023-04-13] MEDS: HEPARIN SODIUM,PORCINE 5,000 UNIT/ML 1 ML VIAL SQ SCH ×2 (08:32→22:22)
[2023-04-13] MEDS: ACETAMINOPHEN TAB 325 MG TAB PO PRN (08:40)
[2023-04-13] MEDS: SODIUM CHLORIDE 0.9% 1,000 ML IV SCH ×3 (08:41→22:24)
[2023-04-13 11:31] LABS: Glucose,Whole Blood 124 mg/dL (70-110)
[2023-04-13] MEDS ORDERED: CYCLOBENZAPRINE 10 MG TAB PO SCH (12:30)
[2023-04-13] MEDS ORDERED: BACLOFEN 10 MG TAB PO PRN (12:41)
--- NOTE | 2023-04-13 14:24 | P.PN ---
Subjective Progress Note Date: 04/13/23 * 42 years old female with multiple medical problems including GERD/Reflux, Hypertension, Rheumatoid Arthritis ,cervical cancer, Raynaud's and gastric ulcer * Patient originally was sent from [facility] for alcohol withdrawal * Patient's is a known alcoholic drinker, she drinks 2 fifths every day, she smokes about 1-2.5 packs per day and she was counseled to quit and she agrees to the nicotine patch. She uses marijuana here and there but nothing else. * She wanted to quit because of her children she tried to go cold turkey at home but she developed withdrawal seizure so she admitted herself to [facility] refer her eventually to this facility. (Patient has a remote history of seizure but not on any seizure medication) * Patient has been complaining of from visual hallucination times one day, she states that she sees white lites, also she thinks she is having auditory hallucination as she had someone called hernia but no one was there. * She has sleeping difficulty * she has diarrhea about 6 times per day but no abdominal pain. Imodium help in her * Patient also has been complaining of from back pain 2 months, no history of trauma or falls. * Patient feels depressed but no suicidal. * Labs unremarkable CBC, BMP, liver enzymes and lipase. Serum alcohol less than 10. * EKG showing normal sinus rhythm at [address]-T changes. QTC 383 04/12/2023 Patient admitted mainly for alcohol withdrawal and delirium tremens which is a severe reaction and evaluated by psychiatrist. Also she has some elements of wheezing, her bronchospasm is significantly improved and therefore we're going to lower the dose of IV Solu-Medrol 40 mg and to oral prednisone 2 days and then stop the systemic and continue with Symbicort to decrease the chances of side effects of steroids on mentation and alert. Patient still have some evidence of tremor and withdrawal symptoms, this morning she had a hallucination OR father, she felt ehe is real and she was crying. 1 tab of Xanax 0.5 mg S provided for her She remains on CIWA protocol and gentle hydration 04/13/2023 patient seen and evaluated bedside, patient has significant anxiety, at this time patient meds have been adjusted, continue to use Ativan. If needed will give 1 dose of phenobarbital She'll started on Librium as well. Given 1 dose of baclofen for back pain Objective - Vital Signs Vital signs: Vital Signs Temp 97.8 F 04/13/23 07:18 Pulse 94 04/13/23 11:19 Resp 16 04/13/23 07:18 BP 169/111 04/13/23 07:18 Pulse Ox 99 04/13/23 07:18 FiO2 Intake & Output 04/12/23 04/13/23 04/13/23 18:59 06:59 18:59 Intake Total 900 Balance 900 Weight 52.617 kg Intake: Intake, IV Titration 900 Amount Sodium Chloride 0.9% 1, 900 000 ml @ 75 mls/hr IV . [id number] [facility]ANE Rx#:[id number] Other: Voiding Method Toilet Toilet # Voids 1 2 - Exam PHYSICAL EXAMINATION: GENERAL: The patient is alert and oriented x3, anxious, generalized tremors HEENT: Pupils are round and equally reacting to light. EOMI. No scleral icterus. No conjunctival pallor. Normocephalic, atraumatic. No pharyngeal erythema. No thyromegaly. CARDIOVASCULAR: S1 and S2 present. No murmurs, rubs, or gallops. PULMONARY: Chest is clear to auscultation, no wheezing or crackles. ABDOMEN: Soft, nontender, nondistended, normoactive bowel sounds. No palpable organomegaly. MUSCULOSKELETAL: No joint swelling or deformity. EXTREMITIES: No cyanosis, clubbing, or pedal edema. NEUROLOGICAL: Gross neurological examination did not reveal any focal deficits. SKIN: No rashes. - Labs CBC & Chem 7: 04/12/23 07:11 04/12/23 07:11 Labs: Abnormal Lab Results - Last 24 Hours (Table) 04/12/23 04/12/23 04/13/23 Range/Units 17:16 20:45 06:27 POC Glucose (mg/dL) 186 H 271 H 116 H (70-110) mg/dL 04/13/23 Range/Units 11:30 POC Glucose (mg/dL) 124 H (70-110) mg/dL Assessment and Plan Assessment: Assessment: * Alcohol withdrawal and delirium tremens * Acute COPD exacerbation * Nicotine dependence * Insomnia * alcohol withdrawal seizure * diarrhea * History of GERD * History of rheumatoid arthritis * History of gastric ulcer * History of Raynaud's * History of hysterectomy for cancer cells and bleeding as per patient Plan: * Continue patient on CIWA protocol. Use Ativan as needed, continue thiamine and folic acid * In regards to alcohol withdrawal patient started on Librium, will use phenobarbital as needed * Continue patient on fluid resuscitation, continue to monitor for more stool * In regards to hypertension, continue atenolol and clonidine * Subcu heparin for DVT prophylaxis
[2023-04-13] MEDS: atenoloL 50 MG TAB PO SCH (14:33)
[2023-04-13 16:29] LABS: Glucose,Whole Blood 124 mg/dL (70-110)
[2023-04-13] MEDS: KETOROLAC 15 MG/ML 1 ML VIAL IVP SCH (18:36)
[2023-04-13 20:39] LABS: Glucose,Whole Blood 93 mg/dL (70-110)
[2023-04-13 21:34] LABS: African American GFR (CKD) >90 (>60 ml/min/1.73 sqM); Anion Gap 6 mmol/L; Blood Urea Nitrogen 11 mg/dL (7-17); Calcium 9.5 mg/dL (8.4-10.2); Carbon Dioxide 20 mmol/L (22-30); Chloride 111 mmol/L (98-107); Glucose 104 mg/dL (74-99); Magnesium 1.8 mg/dL (1.6-2.3); Non-African American GFR(CKD) >90 (>60 ml/min/1.73 sqM); Potassium 4.4 mmol/L (3.5-5.1); Sodium 137 mmol/L (137-145)
[2023-04-13 21:51] LABS: HCT 35.7 % (34.0-46.0); HGB 11.5 gm/dL (11.4-16.0); Hypochromasia Slight; MCH 36.1 pg (25.0-35.0); MCHC 32.3 g/dL (31.0-37.0); Macrocytosis Marked; Mean Platelet Volume 8.3; Platelet Count 197 k/uL (150-450); RBC 3.19 m/uL (3.80-5.40); RDW 15.1 % (11.5-15.5); WBC 9.5 k/uL (3.8-10.6)
[2023-04-13 21:54] LABS: MCV 111.8 fL (80.0-100.0)
[2023-04-13] MEDS: MIRTAZAPINE 15 MG TAB PO SCH (22:22)
[2023-04-14] MEDS: KETOROLAC 15 MG/ML 1 ML VIAL IVP SCH ×5 (00:13→23:04)
[2023-04-14] MEDS: LORazepam 2 MG/ML INJ IV PRN ×5 (02:19→16:53)
[2023-04-14 05:48] LABS: Glucose,Whole Blood 92 mg/dL (70-110)
[2023-04-14] MEDS: SODIUM CHLORIDE 0.9% 1,000 ML IV SCH (05:52)
[2023-04-14] MEDS: INSULIN ASPART (NovoLOG) 100 UNIT/ML VIAL SQ SCH ×4 (07:00→21:46)
[2023-04-14 08:06] LABS: HCT 34.6 % (34.0-46.0); HGB 11.2 gm/dL (11.4-16.0); MCH 35.2 pg (25.0-35.0); MCHC 32.3 g/dL (31.0-37.0); MCV 108.8 fL (80.0-100.0); Macrocytosis Marked; Mean Platelet Volume 8.3; Platelet Count 181 k/uL (150-450); RBC 3.18 m/uL (3.80-5.40); RDW 15.1 % (11.5-15.5); WBC 7.3 k/uL (3.8-10.6)
[2023-04-14] MEDS: HEPARIN SODIUM,PORCINE 5,000 UNIT/ML 1 ML VIAL SQ SCH ×2 (08:07→20:10)
[2023-04-14] MEDS: cloNIDine HCL 0.2 MG TAB PO SCH (08:07)
[2023-04-14] MEDS: MULTIVITAMINS, THERA 1 EACH TAB PO SCH (08:07)
[2023-04-14] MEDS: THIAMINE 100 MG TAB PO SCH (08:07)
[2023-04-14] MEDS: predniSONE 20 MG TAB PO SCH (08:07)
[2023-04-14] MEDS: FOLIC ACID 1 MG TAB PO SCH (08:07)
[2023-04-14] MEDS: NICOTINE 21MG/24HR PATCH TRANSDERM SCH (08:08)
[2023-04-14] MEDS: FAMOTIDINE 20 MG/2 ML VIAL IV SCH ×2 (08:08→20:10)
[2023-04-14] MEDS: DULoxetine HCL 30 MG CAPSULE.DR PO SCH ×2 (08:08→20:12)
[2023-04-14] MEDS: atenoloL 50 MG TAB PO SCH (08:09)
[2023-04-14 08:27] LABS: Chloride 107 mmol/L (98-107)
[2023-04-14 08:29] LABS: ALT 16 U/L (4-34); AST 25 U/L (14-36); African American GFR (CKD) >90 (>60 ml/min/1.73 sqM); Albumin 3.1 g/dL (3.5-5.0); Albumin/Globulin Ratio 1.3; Alkaline Phosphatase 56 U/L (38-126); Anion Gap 1 mmol/L; Blood Urea Nitrogen 7 mg/dL (7-17); Calcium 9.2 mg/dL (8.4-10.2); Carbon Dioxide 27 mmol/L (22-30); Globulin 2.4 g/dL; Glucose 80 mg/dL (74-99); Magnesium 1.7 mg/dL (1.6-2.3); Non-African American GFR(CKD) >90 (>60 ml/min/1.73 sqM); Phosphorus 2.8 mg/dL (2.5-4.5); Potassium 3.6 mmol/L (3.5-5.1); Sodium 135 mmol/L (137-145); Total Bilirubin 0.3 mg/dL (0.2-1.3); Total Protein 5.5 g/dL (6.3-8.2)
[2023-04-14] MEDS: IPRATROPIUM-ALBUTEROL 3 ML NEB INHALATION PRN ×2 (11:35→21:23)
[2023-04-14 11:41] LABS: Glucose,Whole Blood 143 mg/dL (70-110)
[2023-04-14] MEDS: ONDANSETRON 4 MG/2 ML VIAL IVP PRN (12:24)
--- NOTE | 2023-04-14 13:09 | P.PN ---
Subjective Progress Note Date: 04/14/23 * 42 years old female with multiple medical problems including GERD/Reflux, Hypertension, Rheumatoid Arthritis ,cervical cancer, Raynaud's and gastric ulcer * Patient originally was sent from [facility] for alcohol withdrawal * Patient's is a known alcoholic drinker, she drinks 2 fifths every day, she smokes about 1-2.5 packs per day and she was counseled to quit and she agrees to the nicotine patch. She uses marijuana here and there but nothing else. * She wanted to quit because of her children she tried to go cold turkey at home but she developed withdrawal seizure so she admitted herself to [facility] refer her eventually to this facility. (Patient has a remote history of seizure but not on any seizure medication) * Patient has been complaining of from visual hallucination times one day, she states that she sees white lites, also she thinks she is having auditory hallucination as she had someone called hernia but no one was there. * She has sleeping difficulty * she has diarrhea about 6 times per day but no abdominal pain. Imodium help in her * Patient also has been complaining of from back pain 2 months, no history of trauma or falls. * Patient feels depressed but no suicidal. * Labs unremarkable CBC, BMP, liver enzymes and lipase. Serum alcohol less than 10. * EKG showing normal sinus rhythm at [address]-T changes. QTC 383 * 04/12/2023 Patient admitted mainly for alcohol withdrawal and delirium tremens which is a severe reaction and evaluated by psychiatrist. Also she has some elements of wheezing, her bronchospasm is significantly improved and therefore we're going to lower the dose of IV Solu-Medrol 40 mg and to oral prednisone 2 days and then stop the systemic and continue with Symbicort to decrease the chances of side effects of steroids on mentation and alert. Patient still have some evidence of tremor and withdrawal symptoms, this morning she had a hallucination OR father, she felt ehe is real and she was crying. 1 tab of Xanax 0.5 mg S provided for her She remains on CIWA protocol and gentle hydration * 04/13/2023 patient seen and evaluated bedside, patient has significant anxiety, at this time patient meds have been adjusted, continue to use Ativan. If needed will give 1 dose of phenobarbital She'll started on Librium as well. Given 1 dose of baclofen for back pain * 04/14/2023 : Patient seen and evaluated and bedside. Patient is less anxious today. plan discussed with her in detail. Patient concerned about her lung no deal however with chart review no previous CT in our record Objective - Vital Signs Vital signs: Vital Signs Temp 98.1 F 04/14/23 07:42 Pulse 96 04/14/23 11:44 Resp 16 04/14/23 07:42 BP 167/108 04/14/23 07:42 Pulse Ox 97 04/14/23 07:42 FiO2 Intake & Output 04/13/23 04/14/23 04/14/23 18:59 06:59 18:59 Intake Total 1080 Balance 1080 Intake: Oral 1080 Other: Voiding Method Toilet Toilet Toilet # Voids 3 2 - Exam PHYSICAL EXAMINATION: GENERAL: The patient is alert and oriented x3, anxious, HEENT: Pupils are round and equally reacting to light. EOMI. No scleral icterus. No conjunctival pallor. Normocephalic, atraumatic. No pharyngeal erythema. No thyromegaly. CARDIOVASCULAR: S1 and S2 present. No murmurs, rubs, or gallops. PULMONARY: Chest is clear to auscultation, no wheezing or crackles. ABDOMEN: Soft, nontender, nondistended, normoactive bowel sounds. No palpable organomegaly. MUSCULOSKELETAL: No joint swelling or deformity. EXTREMITIES: No cyanosis, clubbing, or pedal edema. NEUROLOGICAL: Gross neurological examination did not reveal any focal deficits. SKIN: No rashes. - Labs CBC & Chem 7: 04/14/23 06:09 04/14/23 06:09 Labs: Abnormal Lab Results - Last 24 Hours (Table) 04/13/23 04/13/23 04/13/23 Range/Units 16:27 20:24 20:24 RBC 3.19 L (3.80-5.40) m/uL Hgb (11.4-16.0) gm/dL MCV 111.8 H D (80.0-100.0) fL MCH 36.1 H (25.0-35.0) pg Macrocytosis Marked A Sodium (137-145) mmol/L Chloride 111 H (98-107) mmol/L Carbon Dioxide 20 L (22-30) mmol/L Creatinine 0.50 L (0.52-1.04) mg/dL Glucose 104 H (74-99) mg/dL POC Glucose (mg/dL) 124 H (70-110) mg/dL Total Protein (6.3-8.2) g/dL Albumin (3.5-5.0) g/dL 04/14/23 04/14/23 04/14/23 Range/Units 06:09 06:09 11:37 RBC 3.18 L (3.80-5.40) m/uL Hgb 11.2 L (11.4-16.0) gm/dL MCV 108.8 H (80.0-100.0) fL MCH 35.2 H (25.0-35.0) pg Macrocytosis Marked A Sodium 135 L (137-145) mmol/L Chloride (98-107) mmol/L Carbon Dioxide (22-30) mmol/L Creatinine 0.49 L (0.52-1.04) mg/dL Glucose (74-99) mg/dL POC Glucose (mg/dL) 143 H (70-110) mg/dL Total Protein 5.5 L (6.3-8.2) g/dL Albumin 3.1 L (3.5-5.0) g/dL Assessment and Plan Assessment: Assessment: * Alcohol withdrawal and delirium tremens * Acute COPD exacerbation * Nicotine dependence * Insomnia * alcohol withdrawal seizure * diarrhea * History of GERD * History of rheumatoid arthritis * History of gastric ulcer * History of Raynaud's * History of hysterectomy for cancer cells and bleeding as per patient Plan: * Continue patient on CIWA protocol. Use Ativan as needed, continue thiamine and folic acid * In regards to alcohol withdrawal patient started on Librium, will use phenobarbital as needed * Patient appropriately resuscitated with fluids. IV fluid to be discontinued later today * In regards to hypertension, continue atenolol and clonidine * Subcu heparin for DVT prophylaxis
--- NOTE | 2023-04-14 13:57 | CT ---
EXAMINATION TYPE: CT chest wo con CT DLP: 224.4 mGycm, Automated exposure control for dose reduction was used. DATE OF EXAM: 04/14/2023 1:38 PM COMPARISON: CT abdomen pelvis 01/08/2019, chest radiograph 05/02/2017. CLINICAL INDICATION:Female, 42 years old with history of Follow-up on lung nodule as an inpatient. TECHNIQUE: Multiple axial images were obtained through the chest without IV contrast. Lack of IV or o ral contrast limits evaluation of solid and hollow organ viscera. . Coronal and sagittal reformats re viewed. FINDINGS: Evaluation is limited due to lack of intravenous contrast. LUNGS/ PLEURA: No pneumothorax, or focal consolidation. Biapical pleural-parenchymal scarring. Trace bilateral pleural effusions. No suspicious pulmonary nodules or masses. AIRWAY: Patent and unremarkable.. HEART: Size within normal limits. No significant pericardial effusion. Mild coronary artery calcifica tions. MEDIASTINUM: No gross evidence of adenopathy. VASCULATURE: No aortic aneurysm. MUSCULOSKELETAL: No acute osseous abnormalities SOFT TISSUES/LYMPH NODES: Unremarkable. LOWER NECK: No significant findings. UPPER ABDOMEN: No significant findings. IMPRESSION: 1. Trace bilateral pleural effusions. 2. No suspicious pulmonary nodules or masses.
[2023-04-14 16:32] LABS: Glucose,Whole Blood 118 mg/dL (70-110)
[2023-04-14] MEDS: MIRTAZAPINE 15 MG TAB PO SCH (20:11)
[2023-04-14 21:09] LABS: Glucose,Whole Blood 86 mg/dL (70-110)
[2023-04-15] MEDS: KETOROLAC 15 MG/ML 1 ML VIAL IVP SCH ×4 (05:11→23:54)
[2023-04-15] MEDS: ACETAMINOPHEN TAB 325 MG TAB PO PRN ×3 (05:17→20:15)
[2023-04-15 06:07] LABS: Glucose,Whole Blood 100 mg/dL (70-110)
[2023-04-15] MEDS: INSULIN ASPART (NovoLOG) 100 UNIT/ML VIAL SQ SCH ×4 (06:51→21:17)
[2023-04-15] MEDS: IPRATROPIUM-ALBUTEROL 3 ML NEB INHALATION PRN ×4 (07:37→21:32)
[2023-04-15] MEDS: atenoloL 50 MG TAB PO SCH (09:13)
[2023-04-15] MEDS: NICOTINE 21MG/24HR PATCH TRANSDERM SCH (09:13)
[2023-04-15] MEDS: FAMOTIDINE 20 MG/2 ML VIAL IV SCH ×2 (09:14→22:26)
[2023-04-15] MEDS: DULoxetine HCL 30 MG CAPSULE.DR PO SCH ×2 (09:14→21:21)
[2023-04-15] MEDS: cloNIDine HCL 0.2 MG TAB PO SCH (09:14)
[2023-04-15] MEDS: HEPARIN SODIUM,PORCINE 5,000 UNIT/ML 1 ML VIAL SQ SCH ×2 (09:14→21:21)
[2023-04-15] MEDS: FOLIC ACID 1 MG TAB PO SCH (09:14)
[2023-04-15] MEDS: MULTIVITAMINS, THERA 1 EACH TAB PO SCH (09:15)
[2023-04-15] MEDS: THIAMINE 100 MG TAB PO SCH (09:15)
[2023-04-15] MEDS: LORazepam 2 MG/ML INJ IV PRN ×4 (09:45→22:26)
[2023-04-15 11:28] LABS: Glucose,Whole Blood 110 mg/dL (70-110)
--- NOTE | 2023-04-15 13:46 | P.PN ---
Subjective Progress Note Date: 04/15/23 * 42 years old female with multiple medical problems including GERD/Reflux, Hypertension, Rheumatoid Arthritis ,cervical cancer, Raynaud's and gastric ulcer * Patient originally was sent from [place] for alcohol withdrawal * Patient's is a known alcoholic drinker, she drinks 2 fifths every day, she smokes about 1-2.5 packs per day and she was counseled to quit and she agrees to the nicotine patch. She uses marijuana here and there but nothing else. * She wanted to quit because of her children she tried to go cold turkey at home but she developed withdrawal seizure so she admitted herself to [facility] refer her eventually to this facility. (Patient has a remote history of seizure but not on any seizure medication) * Patient has been complaining of from visual hallucination times one day, she states that she sees white lites, also she thinks she is having auditory hallucination as she had someone called hernia but no one was there. * She has sleeping difficulty * she has diarrhea about 6 times per day but no abdominal pain. Imodium help in her * Patient also has been complaining of from back pain 2 months, no history of trauma or falls. * Patient feels depressed but no suicidal. * Labs unremarkable CBC, BMP, liver enzymes and lipase. Serum alcohol less than 10. * EKG showing normal sinus rhythm at [address]-T changes. QTC 383 * 04/12/2023 Patient admitted mainly for alcohol withdrawal and delirium tremens which is a severe reaction and evaluated by psychiatrist. Also she has some elements of wheezing, her bronchospasm is significantly improved and therefore we're going to lower the dose of IV Solu-Medrol 40 mg and to oral prednisone 2 days and then stop the systemic and continue with Symbicort to decrease the chances of side effects of steroids on mentation and alert. Patient still have some evidence of tremor and withdrawal symptoms, this morning she had a hallucination OR father, she felt ehe is real and she was crying. 1 tab of Xanax 0.5 mg S provided for her She remains on CIWA protocol and gentle hydration * 04/13/2023 patient seen and evaluated bedside, patient has significant anxiety, at this time patient meds have been adjusted, continue to use Ativan. If needed will give 1 dose of phenobarbital She'll started on Librium as well. Given 1 dose of baclofen for back pain * 04/14/2023 : Patient seen and evaluated and bedside. Patient is less anxious today. plan discussed with her in detail. Patient concerned about her lung no deal however with chart review no previous CT in our record * : Patient seen and evaluated bedside patient is anxious today. CT chest negative for lung noDULE Objective - Vital Signs Vital signs: Vital Signs Temp 97.9 F 04/15/23 13:07 Pulse 76 04/15/23 13:07 Resp 15 04/15/23 13:07 BP 108/69 04/15/23 13:07 Pulse Ox 98 04/15/23 13:07 FiO2 Intake & Output 04/14/23 04/15/23 04/15/23 18:59 06:59 18:59 Intake Total 1080 Balance 1080 Intake: Oral 1080 Other: Voiding Method Toilet Toilet # Voids 3 2 # Bowel Movements 1 - Exam PHYSICAL EXAMINATION: GENERAL: The patient is alert and oriented x3, anxious, HEENT: Pupils are round and equally reacting to light. EOMI. No scleral icterus. No conjunctival pallor. Normocephalic, atraumatic. No pharyngeal erythema. No thyromegaly. CARDIOVASCULAR: S1 and S2 present. No murmurs, rubs, or gallops. PULMONARY: Chest is clear to auscultation, no wheezing or crackles. ABDOMEN: Soft, nontender, nondistended, normoactive bowel sounds. No palpable organomegaly. MUSCULOSKELETAL: No joint swelling or deformity. EXTREMITIES: No cyanosis, clubbing, or pedal edema. NEUROLOGICAL: Gross neurological examination did not reveal any focal deficits. SKIN: No rashes. - Labs CBC & Chem 7: 04/14/23 06:09 04/14/23 06:09 Labs: Abnormal Lab Results - Last 24 Hours (Table) 04/14/23 Range/Units 16:30 POC Glucose (mg/dL) 118 H (70-110) mg/dL Assessment and Plan Assessment: Assessment: * Alcohol withdrawal and delirium tremens * Acute COPD exacerbation * Nicotine dependence * Insomnia * alcohol withdrawal seizure * diarrhea * History of GERD * History of rheumatoid arthritis * History of gastric ulcer * History of Raynaud's * History of hysterectomy for cancer cells and bleeding as per patient Plan: * Continue patient on CIWA protocol. Use Ativan as needed, continue thiamine and folic acid * In regards to alcohol withdrawal patient started on Librium, will use phenobarbital as needed * Patient appropriately resuscitated with fluids. IV fluid to be discontinued * In regards to hypertension, continue atenolol and clonidine * Subcu heparin for DVT prophylaxis
[2023-04-15 16:53] LABS: Glucose,Whole Blood 114 mg/dL (70-110)
[2023-04-15 20:49] LABS: Glucose,Whole Blood 100 mg/dL (70-110)
[2023-04-15] MEDS: MIRTAZAPINE 15 MG TAB PO SCH (21:21)
[2023-04-15] MEDS: ONDANSETRON 4 MG/2 ML VIAL IVP PRN (22:27)
[2023-04-16] MEDS: LORazepam 2 MG/ML INJ IV PRN ×4 (04:18→08:54)
[2023-04-16] MEDS: ACETAMINOPHEN TAB 325 MG TAB PO PRN (04:27)
[2023-04-16] MEDS: KETOROLAC 15 MG/ML 1 ML VIAL IVP SCH ×2 (05:30→12:07)
[2023-04-16 05:52] LABS: Glucose,Whole Blood 86 mg/dL (70-110)
[2023-04-16] MEDS: INSULIN ASPART (NovoLOG) 100 UNIT/ML VIAL SQ SCH ×2 (06:11→12:34)
[2023-04-16 08:26] VITALS: BP 117/89; PULSE 97; RESP 16; TEMP 98.2
[2023-04-16] MEDS: cloNIDine HCL 0.2 MG TAB PO SCH (08:53)
[2023-04-16] MEDS: FAMOTIDINE 20 MG/2 ML VIAL IV SCH (08:53)
[2023-04-16] MEDS: DULoxetine HCL 30 MG CAPSULE.DR PO SCH (08:53)
[2023-04-16] MEDS: HEPARIN SODIUM,PORCINE 5,000 UNIT/ML 1 ML VIAL SQ SCH (08:54)
[2023-04-16] MEDS: atenoloL 50 MG TAB PO SCH (08:54)
[2023-04-16] MEDS: FOLIC ACID 1 MG TAB PO SCH (08:54)
[2023-04-16] MEDS: THIAMINE 100 MG TAB PO SCH (09:06)
[2023-04-16] MEDS: MULTIVITAMINS, THERA 1 EACH TAB PO SCH (09:08)
[2023-04-16] MEDS: NICOTINE 21MG/24HR PATCH TRANSDERM SCH (09:09)
[2023-04-16 10:55] LABS: HCT 38.4 % (37.2-46.3); HGB 12.6 d/dL (12.0-15.0); MCH 35.5 pg (27.0-32.0); MCHC 32.8 d/dL (32.0-37.0); MCV 108.2 FL (80.0-97.0); NRBC Per 100 WBC 0 X 10*3/uL (0.00-0.01); Platelet Count 233 X 10*3/uL (140-440); RBC 3.55 X 10*6/uL (4.10-5.20); RDW 15.5 % (11.5-14.5); WBC 7.88 X 10*3/uL (4.50-10.00)
[2023-04-16 11:20] LABS: Glucose,Whole Blood 107 mg/dL (70-110)
[2023-04-16 11:22] LABS: BUN/Creat Ratio 20.43 Ratio (12.00-20.00); Blood Urea Nitrogen 14.3 mg/dL (9.0-27.0); Calcium 10.1 mg/dL (8.7-10.3); Carbon Dioxide 27.3 mmol/L (21.6-31.8); Chloride 104 mmol/L (96-109); Glucose 87 mg/dL (70-110); Potassium 4.2 mmol/L (3.5-5.5); Sodium 139 mmol/L (135-145)
--- NOTE | 2023-04-16 12:26 | P.DS ---
Providers Date of admission: 04/10/23 23:20 Expected date of discharge: 04/16/23 Attending physician: Jered Mena MD Consults: 04/11/23 08:12 Consult Physician Routine Consulting Provider: Arpit Linder Consult Reason/Comments: depression and alcoholism Do you want consulting provider notified?: Yes Primary care physician: Sumi Paula [facility] Hospital Course: * 42 years old female with multiple medical problems including GERD/Reflux, Hypertension, Rheumatoid Arthritis ,cervical cancer, Raynaud's and gastric ulcer * Patient originally was sent from [place] for alcohol withdrawal * Patient's is a known alcoholic drinker, she drinks 2 fifths every day, she smokes about 1-2.5 packs per day and she was counseled to quit and she agrees to the nicotine patch. She uses marijuana here and there but nothing else. * She wanted to quit because of her children she tried to go cold turkey at home but she developed withdrawal seizure so she admitted herself to [place] refer her eventually to this facility. (Patient has a remote history of seizure but not on any seizure medication) * Patient has been complaining of from visual hallucination times one day, she states that she sees white lites, also she thinks she is having auditory hallucination as she had someone called hernia but no one was there. * She has sleeping difficulty * she has diarrhea about 6 times per day but no abdominal pain. Imodium help in her * Patient also has been complaining of from back pain 2 months, no history of trauma or falls. * Patient feels depressed but no suicidal. * Labs unremarkable CBC, BMP, liver enzymes and lipase. Serum alcohol less than 10. * EKG showing normal sinus rhythm at [address]-T changes. QTC 383 * 04/12/2023 Patient admitted mainly for alcohol withdrawal and delirium tremens which is a severe reaction and evaluated by psychiatrist. Also she has some elements of wheezing, her bronchospasm is significantly improved and therefore we're going to lower the dose of IV Solu-Medrol 40 mg and to oral prednisone 2 days and then stop the systemic and continue with Symbicort to decrease the chances of side effects of steroids on mentation and alert. Patient still have some evidence of tremor and withdrawal symptoms, this morning she had a hallucination OR father, she felt ehe is real and she was crying. 1 tab of Xanax 0.5 mg S provided for her She remains on CIWA protocol and gentle hydration * 04/13/2023 patient seen and evaluated bedside, patient has significant anxiety, at this time patient meds have been adjusted, continue to use Ativan. If needed will give 1 dose of phenobarbital She'll started on Librium as well. Given 1 dose of baclofen for back pain * 04/14/2023 : Patient seen and evaluated and bedside. Patient is less anxious today. plan discussed with her in detail. Patient concerned about her lung no deal however with chart review no previous CT in our record * : Patient seen and evaluated bedside patient is anxious today. CT chest negative for lung noDULE * 04/16/2023 : She is seen and evaluated and bedside. Patient denies of any acute symptoms. No drug from alcohol requested to follow up outpatient with AA program and schedule a PCP visit prescription provided for controlled substance GENERAL: The patient is alert and oriented x3, anxious, HEENT: Pupils are round and equally reacting to light. EOMI. No scleral icterus. No conjunctival pallor. Normocephalic, atraumatic. No pharyngeal erythema. No thyromegaly. CARDIOVASCULAR: S1 and S2 present. No murmurs, rubs, or gallops. PULMONARY: Chest is clear to auscultation, no wheezing or crackles. ABDOMEN: Soft, nontender, nondistended, normoactive bowel sounds. No palpable organomegaly. MUSCULOSKELETAL: No joint swelling or deformity. EXTREMITIES: No cyanosis, clubbing, or pedal edema. NEUROLOGICAL: Gross neurological examination did not reveal any focal deficits. SKIN: No rashes. Assessment: * Alcohol withdrawal and delirium tremens * Acute COPD exacerbation * Nicotine dependence * Insomnia * alcohol withdrawal seizure * diarrhea RESOLVED * History of GERD * History of rheumatoid arthritis * History of gastric ulcer * History of Raynaud's * History of hysterectomy for cancer cells and bleeding as per patient Plan: * Continue patient on CIWA protocol. Was given Ativan, thiamine folic Lasix inpatient, given pupils are far given upon discharge * In regards to alcohol withdrawal patient has appropriately and successfully detoxed * Patient appropriately resuscitated with fluids. IV fluid to be discontinued * In regards to hypertension, continue atenolol and clonidine, home medications * In regards to anxiety and depression continue patient on Cymbalta and Remeron prescription provided Patient Condition at Discharge: Stable Plan - Discharge Summary Discharge Rx Participant: No New Discharge Prescriptions: New DULoxetine HCL [Cymbalta] 30 mg PO BID 30 Days #60 cap Mirtazapine [Remeron] 7.5 mg PO HS 30 Days #30 tab Continue cloNIDine HCL [Catapres] 0.2 mg PO DAILY atenoloL [Tenormin] 50 mg PO DAILY Thiamine [Vitamin B-1] 100 mg PO DAILY Multivitamins, Thera [Multivitamin (formulary)] 1 tab PO DAILY Loperamide HCl [Imodium A-D] 4 mg PO QID PRN PRN Reason: Diarrhea Ibuprofen [Motrin Ib] 600 mg PO Q6H PRN PRN Reason: Pain Or Fever > 100.5 Albuterol Inhaler [Ventolin Hfa Inhaler] 2 puff INHALATION RT-QID PRN PRN Reason: Shortness Of Breath Loratadine [Claritin] 10 mg PO DAILY PRN PRN Reason: Allergy Symptoms ondansetron HCL [Zofran] 8 mg PO Q6H PRN PRN Reason: Nausea Acetaminophen [Tylenol] 650 mg PO Q4H PRN PRN Reason: Pain Or Fever > 100.5 Calcium, Magnesium, Zinc With Vitamin D3 1 tab PO TID PRN PRN Reason: WITHDRAWL SYPTOMS Changed LORazepam [Ativan] 1 mg PO DIRECTED PRN 3 Days #3 PRN Reason: Anxiety Discharge Medication List atenoloL [Tenormin] 50 mg PO DAILY 04/10/16 [History] cloNIDine HCL [Catapres] 0.2 mg PO DAILY 04/10/16 [History] Acetaminophen [Tylenol] 650 mg PO Q4H PRN 04/10/23 [History] Albuterol Inhaler [Ventolin Hfa Inhaler] 2 puff INHALATION RT-QID PRN 04/10/23 [History] Calcium, Magnesium, Zinc With Vitamin D3 1 tab PO TID PRN 04/10/23 [History] Ibuprofen [Motrin Ib] 600 mg PO Q6H PRN 04/10/23 [History] Loperamide HCl [Imodium A-D] 4 mg PO QID PRN 04/10/23 [History] Loratadine [Claritin] 10 mg PO DAILY PRN 04/10/23 [History] Multivitamins, Thera [Multivitamin (formulary)] 1 tab PO DAILY 04/10/23 [History] Thiamine [Vitamin B-1] 100 mg PO DAILY 04/10/23 [History] ondansetron HCL [Zofran] 8 mg PO Q6H PRN 04/10/23 [History] DULoxetine HCL [Cymbalta] 30 mg PO BID 30 Days #60 cap 04/16/23 [Rx] LORazepam [Ativan] 1 mg PO DIRECTED PRN 3 Days #3 04/16/23 [Rx] Mirtazapine [Remeron] 7.5 mg PO HS 30 Days #30 tab 04/16/23 [Rx] Discharge/Stand Alone Forms: AA Meetings [address] - [facility], Community Resources, Outpatient Counseling Discharge Disposition: HOME SELF-CARE
[2023-04-16] MEDS ORDERED: LORazepam 1 MG TAB PO STA (12:45)
== END 2023-04-16 13:10 | disposition home or self-care (01) | DRG 775 ==
LOC: EC 21:35 → 5NMEDONC 23:20 → 4SSUR 04-11 16:50
PROVIDERS: ADMIT Internal Medicine; ATTEND Internal Medicine
DX: F10.231 Alcohol dependence with withdrawal delirium (principal); Z71.6 Tobacco abuse counseling; F17.210 Nicotine dependence, cigarettes, uncomplicated; F41.9 Anxiety disorder, unspecified; G47.00 Insomnia, unspecified; I73.00 Raynaud's syndrome without gangrene; R56.9 Unspecified convulsions; I10 Essential (primary) hypertension; R19.7 Diarrhea, unspecified; F33.1 Major depressive disorder, recurrent, moderate; J44.1 Chronic obstructive pulmonary disease with (acute) exacerbation; K21.9 Gastro-esophageal reflux disease without esophagitis; M06.9 Rheumatoid arthritis, unspecified; Z79.899 Other long term (current) drug therapy; Z85.41 Personal history of malignant neoplasm of cervix uteri; Z87.11 Personal history of peptic ulcer disease; Z90.710 Acquired absence of both cervix and uterus; Z63.4 Disappearance and death of family member; Z71.3 Dietary counseling and surveillance; Z88.5 Allergy status to narcotic agent
CPT/HCPCS: 36415; 71250; 80048; 80053; 80076; 80320; 83690; 83735; 84100; 84484; 84703; 85025; 85027; 93005; 94640; 96361; 96372; 96374; 96375; 96376; 99285